=== PATIENT | female | born 1995 | race Hispanic/Latino ===

== ENCOUNTER 2020-01-21 16:31 | Outpatient (CLI) | payer OTHER, SELFPAY ==
--- NOTE | ~2020-01-21 | XR_ITS ---
XR foot LT min 3V 01/21/2020 16:50 INDICATION: Left foot pain PROCEDURE: 4 views left foot COMPARISON: No prior studies for comparison. FINDINGS: Fracture, dislocation or subluxation is not identified. Lisfranc joint intact. The soft tis sues appear within normal limits. No foreign bodies are identified. There is mild hallux valgus. IMPRESSION: 1: NO ACUTE BONE OR JOINT ABNORMALITY IDENTIFIED. Reviewed, dictated and finalized at location A.
== END 2020-01-21 16:32 | disposition home or self-care (01) ==
PROVIDERS: PCP Registered Nurse; Visit Provider Registered Nurse
DX: M20.12 Hallux valgus (acquired), left foot (principal)
CPT/HCPCS: 73630

== ENCOUNTER 2023-04-28 08:13 | Emergency (ER) | payer BC, SELFPAY ==
--- NOTE | 2023-04-28 08:24 | ED.URI ---
HPI - URI/Sore Throat General Chief Complaint: Upper Respiratory Infection Stated Complaint: Soar Throat Source: patient and RN notes reviewed History of Present Illness HPI Narrative: 27-year-old female presents to urgent care with complaints of a sore throat since night. Patient reports some right ear discomfort as well as body aches. Reports some congestion. Patient denies any known fevers but feels hot and cold at times. Denies any chest pain, shortness of breath, vomiting, or diarrhea. Patient has been taking ibuprofen at home. Some parts of this dictation were generated by voice recognition software and may contain typographical and/or grammatical inaccuracies. Related Data Allergies Allergy/AdvReac Type Severity Reaction Status Date / Time No Known Allergies Allergy Verified 04/28/23 08:34 Review of Systems Review of Systems: Pertinent positives and pertinent negatives per HPI. PMFSH Comments At the time of my signature, I reviewed and agree with the nursing past medical, surgical, social, and family history. There is no relevant family history pertinent to the patient complaint. Exam Narrative: GENERAL: This is a well-nourished, well-developed patient, in no apparent distress. HEAD: normocephalic, atraumatic. EYES: Sclera clear/white. Vision is grossly intact. EARS: External ears normal, auditory canals clear and without drainage, TMs normal without perforation. Hearing grossly intact. NOSE: External nose normal with no obvious nasal discharge, nares without redness, no rhinorrhea. THROAT: Mucous membranes moist, posterior pharynx erythremic. Tonsils bilaterally 3+ with exudate. NECK: Neck supple, non-tender without lymphadenopathy, masses or thyromegaly. CARDIOVASCULAR: Regular rate and rhythm without murmurs, gallops, or rubs. RESPIRATORY: Clear to auscultation. Breath sounds equal bilaterally. No wheezes, rales, or rhonchi. SKIN: warm, intact with no suspicious lesions or rash, good texture and turgor. NEURO: awake, alert, and oriented to person, place and time. There were no obvious focal neurologic abnormalities. Course Course Level of Care: Express Care Visit Vital Signs Vital signs: Vital Signs Temperature 99.8 F H 04/28/23 08:28 Pulse Rate 94 04/28/23 08:28 Respiratory Rate 16 04/28/23 08:28 Blood Pressure 134/78 04/28/23 08:28 Pulse Oximetry 99 04/28/23 08:28 Oxygen Delivery Room Air 04/28/23 08:28 Temperature 99.8 F H 04/28/23 08:28 Pulse Rate 94 04/28/23 08:28 Respiratory Rate 16 04/28/23 08:28 Blood Pressure 134/78 04/28/23 08:28 Pulse Oximetry 99 04/28/23 08:28 Oxygen Delivery Room Air 04/28/23 08:28 reviewed MDM - URI/Sore Throat Differential Diagnosis Differential diagnosis: Likely upper respiratory infection, viral infection and pharyngitis Lab Data Attestation: I reviewed the patient's lab results. Labs: Strep Screen Presumptive Negative *(Reference Range: Negative)* Critical Care Time Critical Care Time Critical Care Time: No Discharge Plan Discharge Clinical Impression: Pharyngitis Qualifiers: Pharyngitis/tonsillitis etiology: unspecified etiology Qualified Code(s): J02.9 - Acute pharyngitis, unspecified Patient Disposition: Home, Self-Care Condition: Stable Instructions: Pharyngitis (ED) Additional Instructions: Rapid strep is negative in the office; however we will send to the lab for confirmation; there is a small percentage chance that it can come back positive; if it is, we will call you in 2-3days; and your prescription will be call in to your pharmacy. However, there is NO indication for antibiotic at this time. -Increase your fluids and Vitamin C. -Oral rinses such as: Salt water gargles and/or may use topical anesthetic (eg. Chloraseptic spray) or lozenges to relieve dryness or throat pain. -Take tylenol and ibuprof
[2023-04-28 08:28] VITALS: BP 134/78; PULSE 94; RESP 16; TEMP 37.7; O2SAT 99
== END 2023-04-28 08:48 | disposition home or self-care (01) ==
PROVIDERS: Emergency Provider Nurse Practitioner Family; PCP Registered Nurse
DX: J02.9 Acute pharyngitis, unspecified (principal)
CPT/HCPCS: 87081; 87880; 99213; G0463

== ENCOUNTER 2025-01-05 09:27 | Emergency (ER) | payer BC, OTHER, SELFPAY ==
--- NOTE | ~2025-01-05 | CT_ITS ---
CT of the Abdomen and Pelvis: Indication: Abdominal pain Technique: 2.5 mm axial scans were obtained through the abdomen and pelvis following intravenous adm inistration of 100 cc of Omnipaque 350. Dose reduction technique was used on this scan by utilizing a utomated exposure control and iterative reconstruction technique. The dose-length product (DLP) was 8 96.67 mGy-cm. Findings: Scans through the lung bases are unremarkable. The liver, spleen, pancreas, gallbladder, adrenals and kidneys are within normal limits. No evidence of aortic aneurysm. No lymphadenopathy. No bowel obstruction or bowel wall thickening. There is no evidence to suggest acute appendicitis. Images through the pelvis were performed. Urinary bladder unremarkable. No adnexal mass seen. Probabl e trace free fluid in the pelvis. Impression: Trace free fluid in the pelvis, otherwise unremarkable exam. Reviewed, dictated and finalized at location . ICAL OPERATIONS CONSULTANT Impression: Trace free fluid in the pelvis, otherwise unremarkable exam.
[2025-01-05 09:33] VITALS: BP 131/74; PULSE 83; RESP 18; TEMP 36.6; O2SAT 100
--- OUTSIDE RECORDS SUMMARY | 2025-01-05 10:06 | XMS_ITS | Clinical Summary ---
Author Organization [address] [address] Care Team Providers Care Fruit Grower Name Role Phone MeronAlma JENNIFFER Primary Care Provider [phone] Allergies No known active allergies Medications No known medications Active Problems No known active problems Encounters Date Type Department Care Team Description 01/05/2025 9:15 AM BATTERY LOADER Office Visit [facility] at [address] [address] Gabriela Anderson NP Abdominal pain (Primary Dx); Abdominal tenderness, rebound tenderness presence not specified, unspecified location from Last 3 Months Social History Tobacco Use Types Packs/Day Years Used Date Smoking Tobacco: Never Assessed Comments Unknown Sex and Gender Information Value Date Recorded Sex Assigned at Not on file Legal Sex Female 8:37 AM BATTERY LOADER Gender Identity Not on file Sexual Orientation Not on file Obstetrics History Last Filed Vital Signs Vital Sign Reading Time Taken Comments Blood Pressure 119/80 01/05/2025 9:01 AM BATTERY LOADER Pulse 75 01/05/2025 9:01 AM BATTERY LOADER Temperature 36.8 C (98.2 F) 01/05/2025 9:01 AM BATTERY LOADER Respiratory Rate 18 01/05/2025 9:01 AM BATTERY LOADER Oxygen Saturation 99% 01/05/2025 9:01 AM BATTERY LOADER Inhaled Oxygen Concentration - - Weight 99.2 kg (218 lb 9.6 oz) 01/05/2025 9:01 A M BATTERY LOADER Height 160 cm (5' 3 ) 01/05/2025 9:01 AM BATTERY LOADER Body Mass Index 38.72 01/05/2025 9:01 AM BATTERY LOADER Plan of Treatment Health Maintenance Due Date Last Done Comments Cervical Cancer Screening 1996 Depression Screening 1996 Hepatitis C Screening 1996 Varicella Vaccines (2 of 2 - 2-dose childhood series) 01/04/2007 10/12/2006 Regular Well Visit/Exam 18-64 2014 Covid-19 Vaccine (2 - 2023- season) 2024 11/11/2021 Influenza Vaccine (#1) 2024 08/26/2008 DTaP/Tdap/Td Vaccine (8 - Td or Tdap) 05/07/2030 05/07/2020, 2007, 08/27/2000, Additional history exists HPV Vaccines Completed 09/17/2014, 01/11, 09/28/2010, Additional history exists Hepatitis B Screening Completed 12/29/2024 , 07/28/2024, 06/27/2024, Additional history exists Pneumococcal vaccine <65 Aged Out No longer eligible based on patient's age to complete this topic Insurance [facility] [place] Care Teams Fruit Grower Relationship Specialty Start Date End Date Alma Chance NP [facility] [address] PCP - General Nurse Practitioner 01/05/25
--- OUTSIDE RECORDS SUMMARY | 2025-01-05 10:06 | XMS_ITS | Encounter Summary ---
Author Organization [facility] Healthcare Address [address] [place] [id number] Care Team Providers Care Assistant Distribution Manager Name Role Phone Alma Chance NP Primary Care Provider [phone] Reason for Visit * Reason Comments Abdominal Pain Upper abdominal pain , in the center under her rib cage, started last night, hurts to be flat on her back, and stand up straight, 6/10 pain, feels like a Dull pain, Encounter Details Date Type Department Care Team (Late st Contact Info) Description 01/05/2025 9:15 AM ADULT DAY CARE WORKER Office Visit [facility] at [address] [address] Gabriela Anderson NP [address] [place] [address] [address] [place] [address] Abdominal pain (Primary Dx); Abdominal tenderness, rebound tenderness presence not specified, unspecified location Social History Tobacco Use Types Packs/Day Years Used Date Smoking Tobacco: Never Assessed Comments Unknown Sex and Gender Information Value Date Recorded Sex Assigned at Not on file Legal Sex Female 8:37 AM ADULT DAY CARE WORKER Gender Identity Not on file Sexual Orientation Not on file documented as of this encounter Last Filed Vital Signs Vital Sign Reading Time Taken Comments Blood Pressure 119/80 01/05/2025 9:01 AM ADULT DAY CARE WORKER Pulse 75 01/05/2025 9:01 AM ADULT DAY CARE WORKER Temperature 36.8 C (98.2 F) 01/05/2025 9:01 AM ADULT DAY CARE WORKER Respiratory Rate 18 01/05/2025 9:01 AM ADULT DAY CARE WORKER Oxygen Saturation 99% 01/05/2025 9:01 AM ADULT DAY CARE WORKER Inhaled Oxygen Concentration - - Weight 99.2 kg (218 lb 9.6 oz) 01/05/2025 9:01 A M ADULT DAY CARE WORKER Height 160 cm (5' 3 ) 01/05/2025 9:01 AM ADULT DAY CARE WORKER Body Mass Index 38.72 01/05/2025 9:01 AM ADULT DAY CARE WORKER documented in this encounter Plan of Treatment Not on file documented as of this encounter Visit Diagnoses Diagnosis Abdominal pain- Primary Abdominal pain, unspecified site Abdominal tenderness, rebound tenderness presence not specified, unspecified location documented in this encounter Care Teams Assistant Distribution Manager Relationship Specialty Start Date End Date Alma Chance NP [facility] [address] PCP - General Nurse Practitioner 01/05/25 documented as of this encounter
--- OUTSIDE RECORDS SUMMARY | 2025-01-05 10:06 | XMS_ITS | Data Portability ---
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 Plan of Treatment Reminders Order Date Submit Date Provider Last Modified By Organization Details Last Modified Time Details Appointments None recorded. Lab RPR (rapid plasma reagin), serum [address] [facility], [address] [place] [address], [place] [address], [place], [address], 0 06:10:00 HIV (1+2) antibodies , EIA, serum, reflex HIV-1 western blot (WB) 2019 020 bernie [facility], [address] [place] [address], [address], [place], [address], 0 10:14:19 pap, IG + HPV, cervical [address] 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 granite 1230 2019 020 [facility] (Lab), [address] [place], [address], 0 12:17:36 test, urine 2019 020 OS[facility] In-Office Order, Internal Use Only DO Not Attach Compendium DO Not Attach Compendium, Do Not Delete/merge, [id number] 14:54:28 PPD (purified protein derivative ), skin test 2018 019 [email or web address] In-Office Order, Internal Use Only DO Not Attach Compendium DO Not Attach Compendium, Do Not Delete/merge, [id number] 9 11:50:06 CMP, serum or plasma 2016 017 OSITO [facility], [address] [place] [address], [address], [place], [address], 7 03:30:18 lipid panel, serum 2016 017 OSITO [facility], [address] [place] [address], [address], [place], [address], 7 03:30:13 TSH + free T4, serum 2016 017 [email or web address] [facility], [address] [place] [address], [address], [place], [address], 7 15:47:38 HbA1c (hemoglobi n A1c), blood 2016 017 OSITO [facility], [address] [place] [address], [address], [place], [address], 7 08:21:08 CBC 2016 017 [email or web address] [facility], [address] [place] [address], [address], [place], [address], 7 15:47:27 CT + NG + TV, DNA, urine/swab 2016 017 OSITO [facility], [address] [facility] [address], [address], [place], [address], 7 23:29:32 HIV (1+2) Ab screen, serum 2016 017 OSIT[facility], [address] [facility] [address], [address], [place], [address], 7 08:21:06 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 Surgeries None recorded. Imaging XR, foot, 3 or more view 2019 020 [facility] Not available 0 02:49:53 Medication Orders Metrogel Vaginal 0.75 % (37.5 mg/5 gram) 2019 020 INTERFACE [facility], [address] [place], [address], 0 15:13:47 naproxen 500 mg tablet [address] [facility], [address] [facility], [place], [address], 0 14:42:00 Tubersol 5 tub. unit/0.1 mL intraderma l injection solution [address] [facility], [address] [place], [address], 0 14:00:39 Tubersol 5 tub. unit/0.1 mL intraderma l injection solution 2016 017 [facility] 2 Not available 0 14:00:39 Patient TargetsNo targets recorded. Patient Instructions Encounter Date Encounter Id Patient Instructions Last Modified By Organization Details Last Modified Time 04/02/2017 [id number] When You Want to Lose Weight: Care Instructions Not available 04/02/2017 15:31:10 back pain: care instructions Not available 04/02/2017 15:31:10 learning about tuberculosis (TB) Not available 04/02/2017 15:31:10 HIV testing recommendation condoms prn contraceptive options new guidelines--pap with Hpv in 3-5 years--pelvic exam every year Mammogram starting at 40 Check B/P once yearly [email or web address] Not available 04/02/2017 15:19:54 06/02/2019 [id number] learning about tuberculosis (TB) [email or web address] Not available 06/02/2019 17:33:38 01/21/2020 [id number] juanetes: instrucciones de cuidado - [bunions: care instructions] [email or web address] Not available 01/21/2020 14:36:00 body mass index: care instructions [email or web address] Not available 01/21/2020 14:36:01 learning about healthy weight yarauz Not available 01/21/2020 14:36:00 you need to schedule for wwe yarauz Not available 01/21/2020 14:37:42 use night bunion splint weight loss stretching exercises ice to the area as needed no flip flops or high heel shoes wider shoes/orthotics vaccine Bexsero yarauz Not available 01/21/2020 14:40:58 04/28/2020 [id number] Reviewed the following recommendations: -Stay home and separate from others as much as possible. -Monitor your symptoms and seek medical attention for trouble breathing, persistent chest pain, confusion, or bluish lips or face. -Wear a mask if you must be around other people. -Wash your hands often for 20 seconds with soap and water and clean high-touch surfaces daily -You may discontinue home isolation if your symptoms are improving and it has been 10 days since symptoms started. 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 ux valgus AND bunion 24 y/o HF with L foot bunion for 3 years with progressive worsening pain Referring Physician: Alma Franco, Family Medicine, Encounter Date: 01/21/2020 Results Created Date Observation Date Name Description Value Unit Range Abnormal Flag Note LastModifiedBy Organization Detail LastModifiedTime 06/04/20 19 06/04/2019 PPD (aurora fied prote in deriv ative ), skin test Result Positi ve Not Available In-Office Order Internal Use Only DO Not Attach Compendium DO Not Attach Compendium, Do Not Delete/merge, [id number] 06/04/2019 18:55:46 04/02/20 17 04/02/2017 CBC WBC 7.5 K/uL 3.4-10 .8 Not Available [facility] (Lab) [address] [place], [address], 04/02/2017 19:47:16 04/02/20 17 04/02/2017 CBC red blood count 4.6 M/uL 4.2-5. 4 Not Available [facility] (Lab) [address] [place], [address], 04/02/2017 19:47:16 04/02/20 17 04/02/2017 CBC hemoglobin 12.6 g/dL 11.5-1 5.5 Not Available [facility] (Lab) [address] [place], [address], 04/02/2017 19:47:16 04/02/20 17 04/02/2017 CBC hematocrit 37.7 % 36.0-4 8.0 Not Available [facility] ([facility]) [address] [place], [address], 04/02/2017 19:47:16 04/02/20 17 04/02/2017 CBC MCV 81 fL 80-95 Not Available [facility] (Lab) [address] [place], [address], 04/02/2017 19:47:16 04/02/20 17 04/02/2017 CBC MCH 27 pg 27-32 Not Available [facility] ([facility]) [address] [place], [address], 04/02/2017 19:47:16 04/02/20 17 04/02/2017 CBC MCHC 33 g/dL 32-36 Not Available [facility] (Lab) [address] [place], [address], 04/02/2017 19:47:16 04/02/20 17 04/02/2017 CBC platelets 331 K/uL 155-37 9 Not Available [facility] (Lab) [address] [place], [address], 04/02/2017 19:47:16 04/02/20 17 04/02/2017 CBC RDW 13.9 % 11.5-1 4.5 Not Available [facility] (Lab) [address] [place], [address], 04/02/2017 19:47:16 04/02/20 17 04/02/2017 CBC MPV 10.2 fL 8.9-12 .7 Not Available [facility] (Lab) [address] [place], [address], 04/02/2017 19:47:16 04/02/20 17 04/02/2017 CBC neutrophils absolute 4.3 K/uL 1.4-7. 0 Not Available [facility] (Lab) [address] [place], [address], 04/02/2017 19:47:16 04/02/20 17 04/02/2017 CBC lymphs (absolute) 2.5 K/uL 0.7-3. 1 Not Available [facility] (Lab) [address] [place], [address], 04/02/2017 19:47:16 04/02/20 17 04/02/2017 CBC monocytes (absolute) 0.6 K/uL 0.1-0. 9 Not Available [facility] (Lab) [address] [place], [address], 04/02/2017 19:47:16 04/02/20 17 04/02/2017 CBC eos (absolute) 0.1 K/uL 0.0-0. 4 Not Available [facility] (Lab) [address] [place], [address], 04/02/2017 19:47:16 04/02/20 17 04/02/2017 CBC baso (absolute) 0.0 K/uL 0.1-0. 3 low Not Available [facility] (Lab) [address] [place], [address], 04/02/2017 19:47:16 04/02/20 17 04/02/2017 CBC neut % 57.4 % 40.0-7 4.0 Not Available [facility] (Lab) [address] [place], [address], 04/02/2017 19:47:16 04/02/20 17 04/02/2017 CBC lymphs % 33.4 % 14.0-4 6.0 Not Available [facility] (Lab) [address] [place], [address], 04/02/2017 19:47:16 04/02/20 17 04/02/2017 CBC mono % 7.5 % 4.0-12 .0 Not Available [facility] (Lab) [address] [place], [address], 04/02/2017 19:47:16 04/02/20 17 04/02/2017 CBC eos % 1 % <=5 Not Available [facility] (Lab) [address] [place], [address], 04/02/2017 19:47:16 04/02/20 17 04/02/2017 CBC baso % 0.4 % 0.1-1. 1 Not Available [facility] (Lab) [address] [place], [address], 04/02/2017 19:47:16 04/02/20 17 04/02/2017 lipid panel w/ direc t LDL, serum cholestrol 136.0 mg/dL 140.0- 200.0 low Not Available [facility] (Lab) [address] [place], [address], 04/02/2017 21:22:37 04/02/20 17 04/02/2017 lipid panel w/ direc t LDL, serum triglyceride s 127 mg/mL 150-19 9 low Not Available [facility] (Lab) [address] [place], [address], 04/02/2017 21:22:37 04/02/20 17 04/02/2017 lipid panel w/ direc t LDL, serum HDL cholesterol 52.0 mg/dL 40.0-1 00.0 Not Available [facility] (Lab) [address] [place], [address], 04/02/2017 21:22:37 04/02/20 17 04/02/2017 lipid panel w/ direc t LDL, serum LDL direct 71 mg/dL <=100 Not Available [facility] (Lab) [address] [place], [address], 04/02/2017 21:22:37 04/02/20 17 04/02/2017 lipid panel w/ direc t LDL, serum cholhdl 2.60 mg/dL 0.00-4 .98 Not Available [facility] (Lab) [address] [place], [address], 04/02/2017 21:22:37 04/02/20 17 04/02/2017 CMP, serum or plasm a glucose, serum 81 mg/dL 65-99 Not Available [facility] (Lab) [address] [place], [address], 04/02/2017 21:22:57 04/02/20 17 04/02/2017 CMP, serum or plasm a BUN 8 mg/dL 8-26 Not Available [facility] (Lab) [address] [place], [address], 04/02/2017 21:22:57 04/02/20 17 04/02/2017 CMP, serum or plasm a creatinine, serum 0.60 mg/dL 0.50-1 .40 Not Available [facility] (Lab) [address], [place], [address], 04/02/2017 21:22:57 04/02/20 17 04/02/2017 CMP, serum or plasm a BUN/creatnin e ratio 13.3 Not Available [facility] (Lab) [address], [place], [address], 04/02/2017 21:22:57 04/02/20 17 04/02/2017 CMP, serum or plasm a sodium, serum 142.0 mEq/L 136.0- 144.0 Not Available [facility] (Lab) [address] [place], [address], 04/02/2017 21:22:57 04/02/2004/02/2017 CMP, serum or plasm a potassium, serum 4.3 mmol/ L 3.5-5. 3 Not Available [facility] (Lab) [address], [place], [address], 04/02/2017 21:22:57 04/02/20 17 04/02/2017 CMP, serum or plasm a chloride, serum 101 mmol/ l 101-11 1 Not Available [facility] (Lab) [address], [place], [address], 04/02/2017 21:22:57 04/02/2004/02/2017 CMP, serum or plasm a carbon dioxide total 20.8 mmol/ L 21.0-3 2.0 low Not Available [facility] (Lab) [address], [place], [address], 04/02/2017 21:22:57 04/02/20 17 04/02/2017 CMP, serum or plasm a aniongp 25.0 mmol/ L Not Available [facility] (Lab) [address], [place], [address], 04/02/2017 21:22:57 04/02/20 17 04/02/2017 CMP, serum or plasm a calcium, serum 9.5 mg/dL 8.2-10 .0 Not Available [facility] (Lab) [address], [place], [address], 04/02/2017 21:22:57 04/02/20 17 04/02/2017 CMP, serum or plasm a total protein 7.5 g/dL 6.7-8. 2 Not Available [facility] (Lab) [address] [place], [address], 04/02/2017 21:22:57 04/02/2004/02/2017 CMP, serum or plasm a albumin, serum 4.2 g/dL 3.5-5. 5 Not Available [facility] (Lab) [address], [place], [address], 04/02/2017 21:22:57 04/02/2004/02/2017 CMP, serum or plasm a agratio 1.3 Not Available [facility] (Lab) [address], [place], [address], 04/02/2017 21:22:57 04/02/20 17 04/02/2017 CMP, serum or plasm a bilt 0.4 mg/dL 0.2-1. 0 Not Available [facility] (Lab) [address], [place], [address], 04/02/2017 21:22:57 04/02/20 17 04/02/2017 CMP, serum or plasm a AST 18.0 U/L 10.0-4 2.0 Not Available [facility] (Lab) [address], [place], [address], 04/02/2017 21:22:57 04/02/20 17 04/02/2017 CMP, serum or plasm a ALT 13.0 U/L 10.0-6 0.0 Not Available [facility] (Lab) [address] [place], [address], 04/02/2017 21:22:57 04/02/20 17 04/02/2017 CMP, serum or plasm a alk phos 48.0 IU/L 42.0-1 21.0 Not Available [facility] (Lab) [address] [place], [address], 04/02/2017 21:22:57 04/02/20 17 04/02/2017 CMP, serum or plasm a osmol 280.0 mOsm/ L 275.0- 301.0 Not Available [facility] (Lab) [address] [place], [address], 04/02/2017 21:22:57 04/02/20 17 04/02/2017 CMP, serum or plasm a eGFR, AM 164 m/lmi n/1.7 3_m >=60 Not Available [facility] (Lab) [address] [place], [address], 04/02/2017 21:22:57 04/02/20 17 04/02/2017 CMP, serum or plasm a eGFR, non- AM 136 mL/mi n/1.7 3/m >=60 Not Available [facility] (Lab) [address] [place], [address], 04/02/2017 21:22:57 04/02/20 17 04/03/2017 TSH + free T4, serum TSH 1.110 uIU/m L 0.450- 4.500 Not Available [facility] (Lab) [address] [place], [address], 04/03/2017 07:12:26 04/02/2004/03/2017 TSH + free T4, serum T4,free(dire ct) 1.07 NG/dL 0.82-1 .77 Not Available [facility] (Lab) [address] [place], [address], 04/03/2017 07:12:26 04/02/2004/03/2017 HIV (1+2) Ab scree n, serum HIV 4TH generation Non Reacti ve non reacti ve Not Available [facility] (Lab) [address] [place], [address], 04/03/2017 08:21:06 04/02/20 17 04/03/2017 HbA1c (hemo globi n A1c), blood hemoglobin A1C 5.7 % 4.8-5. 6 high . Pre-d iabet es: 5.7 - 6.4 Diabe russell: >6.4 Glyce ene contr ol for adult s with diabe russell: <7.0 Not Available [facility] (Lab) [address] [place], [address], 04/03/2017 08:21:08 04/02/20 17 04/03/2017 CT + NG + TV, DNA, urine /swab chlamydia by DARRIN Negati ve negati ve Not Available [facility] (Lab) [address] [place], [address], 04/03/2017 23:29:32 04/02/20 17 04/03/2017 CT + NG + TV, DNA, urine /swab gonococcus by DARRIN Negati ve negati ve Not Available [facility] (Lab) [address] [facility], [place], [address], 04/03/2017 23:29:32 04/02/20 17 04/03/2017 CT + NG + TV, DNA, urine /swab trich vag by DARRIN Negati ve negati ve Not Available [facility] (Lab) [address] [place], [address], 04/03/2017 23:29:32 06/16/20 19 06/17/2019 tb (M tuber culos is), ifn-g elmo betty , blood quantiferon incubation Incuba tion perfor med. Not Available [facility] ([facility]) [address] [facility], [place], [address], 06/19/2019 16:10:20 06/16/2006/17/2019 tb (M tuber culos is), ifn-g elmo betty , blood quantiferon criteria Commen t The Quant iFERO N-TB Gold Plus resul t is deter mined by alber actin g the Nil value from eithe r TB antig en (Ag) tube. The mitog en tube serve s as a contr ol for the test. Not Available [facility] ([facility]) [address] [place], [address], 06/19/2019 16:10:20 06/16/2006/19/2019 tb (M tuber culos is), ifn-g elmo betty , blood quantiferon TB1 Ag value 0.13 IU/mL Not Available [facility] ([facility]) [address] [place], [address], 06/19/2019 16:10:20 06/16/2006/19/2019 tb (M tuber culos is), ifn-g elmo betty , blood quantiferon TB2 Ag value 0.14 IU/mL Not Available [facility] ([facility]) [address] [place], [address], 06/19/2019 16:10:20 06/16/2006/19/2019 tb (M tuber culos is), ifn-g elmo betty , blood quantiferon nil value 0.02 IU/mL Not Available [facility] ([facility]) [address] [place], [address], 06/19/2019 16:10:20 06/16/2006/19/2019 tb (M tuber culos is), ifn-g elmo betty , blood quantiferon mitogen value >10.00 IU/mL Not Available [facility] ([facility]) [address] [place], [address], 06/19/2019 16:10:20 06/16/2006/19/2019 tb (M tuber culos is), ifn-g elmo betty , blood quantiferon- TB gold plus Negati ve negati ve Not Available [facility] ([facility]) [address] [facility], [place], [address], 06/19/2019 16:10:20 01/21/20 20 01/21/2020 pregn filomena test, urine HCG negati ve Not Available In-Office Order Internal Use Only DO Not Attach Compendium DO Not Attach Compendium, Do Not Delete/merge, [id number] 01/21/2020 14:38:32 04/28/20 20 04/28/2020 SARS CoV 2 RNA (COVI D-19) , QL, human resources 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 A negat han resul t does not precl ude the possi bilit y of 2019- nCoV infec tion since the adequ acy of sampl e colle ction and/o r low viral burde n may resul t in the prese nce of viral nucle ic acids level s below the saima tical sensi tivit y of this test metho d. Not Available [facility] (Lab) [address] [facility], [place], [address], 05/11/2020 11:18:14 04/28/20 20 04/28/2020 SARS CoV 2 RNA (COVI D-19) , QL, human resources compensation analyst-P CR, respi rator y speci men covidcom2 Posit han resul ts are indic ative of the prese nce of SARS- CoV-2 RNA and do not rule out bacte rial infec tion or co-in fecti on with other virus es. Not Available [facility] (Lab) [address] [place], [address], 05/11/2020 11:18:14 04/28/20 20 04/28/2020 SARS CoV 2 RNA (COVI D-19) , QL, human resources compensation analyst-P CR, respi rator y speci men covidcom3 Test resul ts shoul d be used along with other clini judy obser vatio ns, patie nt histo ry, epide miolo gical infor matio n and labor atory data in makin g the diagn osis. Not Available [facility] (Lab) [address] [place], [address], 05/11/2020 11:18:14 04/28/20 20 04/28/2020 SARS CoV 2 RNA (COVI D-19) , QL, human resources compensation analyst-P CR, respi rator y speci men covidcom4 This test has recei dulce FDA Emerg ency Use Autho rizat ion and has been verif ied by [facility] . This test is only autho rized for the durat ion of the decla ratio n and the circu mstan sana that exist to justi fy the autho rizat ion of the emerg ency use of in vitro diagn ostic tests for the detec tion of SARS- CoV-2 virus and/o r diagn osis of COVID -19 infec tion under secti on 564 (b) (1) of the Act. 11 U.S.C . 360bb b-3 (b) (1), unles s the autho rizat ion is termi nated or revok ed soone r. Not Available [facility] (Lab) [address] [place], [address], 05/11/2020 11:18:14 04/28/20 20 04/28/2020 SARS CoV 2 RNA (COVI D-19) , QL, human resources compensation analyst-P CR, respi rator y speci men covidcom5 [facility] is certi fied under CLIA- 88 as quali fied to perfo rm high compl exity testi ng. This testi ng was perfo rmed in the [facility] [place] [address] (CLIA Licen se #[id number] 5, CAP #[id number], AU-ID #[id number]). Not Available [facility] (Lab) [address] [place], [address], 05/11/2020 11:18:14 04/28/20 20 04/28/2020 SARS CoV 2 RNA (COVI D-19) , QL, human resources compensation analyst-P CR, respi rator y speci men covidcom6 Facts heet for healt hcare provi ders: https ://[employer].Help/Systems .gov/ media /4992 56/do wnloa d Facts heet for patie nts: https ://[employer].Help/Systems .gov/ media /9680 57/do wnloa d Not Available [facility] (Lab) [address] [place], [address], 05/11/2020 11:18:14 05/07/20 20 05/08/2020 RPR (rapi d plasm a reagi n), serum RPR Non Reacti ve non reacti ve Not Available [facility] (Lab) [address] [place], [address], 05/08/2020 06:10:00 05/07/20 20 05/08/2020 HIV (1+2) antib odies , EIA, serum , refle x HIV-1 weste rn blot (WB) HIV 4TH generation Non Reacti ve non reacti ve Not Available [facility] (Lab) [address] [place], [address], 05/08/2020 08:13:10 05/07/20 20 05/11/2020 CT + NG RNA, PCR, unspe cifie d speci men chlamydia trachomatis, DARRIN Negati ve negati ve Not Available [facility] [address] [place] [address], [place], [address], 05/11/2020 08:14:26 05/07/20 20 05/11/2020 CT + NG RNA, PCR, unspe cifie d speci men neisseria gonorrhoeae, DARRIN Negati ve negati ve Not Available [facility] [address], [place], [address], 05/11/2020 08:14:26 05/07/20 20 05/12/2020 pap, IG + HPV, cervi judy diagnosis: [facility] NEGAT HAN FOR INTRA EPITH ELIAL LESIO N OR MOOK NASH . Perfo rmed at: WB Not Available [facility] [address], [place], [address], 05/12/2020 18:30:19 05/07/20 20 05/12/2020 pap, IG + HPV, cervi judy specimen adequacy: [facility] Satis facto ry for evalu ation . Endoc ervic al and/o r squam ous metap lasti c cells (endo cervi judy compo nent) are prese nt. Perfo rmed at: WB Not Available [facility] [address], [place], [address], 05/12/2020 18:30:19 05/07/20 20 05/12/2020 pap, IG + HPV, cervi judy performed by: [facility] Alejandra krishnamurthy, Cytot echno logis t (ASCP ) Perfo rmed at: WB Not Available [facility] [address], [place], [address], 05/12/2020 18:30:19 05/07/20 20 05/12/2020 pap, IG + HPV, cervi judy Pap smear, 1 slide . Perfo rmed at: WB Not Available [facility] [address], [place], [address], 05/12/2020 18:30:19 05/07/20 20 05/12/2020 pap, IG + HPV, cervi judy note: PAPSMR The Pap smear is a scree lori test desig sonia to aid in the detec tion of linda ligna nt and malig nant condi tions of the uteri ne cervi x. It is not a diagn ostic proce dure and shoul d not be used as the sole means of detec ting cervi judy cance r. Both false -posi tive and false -nega tive repor ts do occur . . Perfo rmed at: WB Not Available [facility] [address] [facility] [address], [place], [address], 05/12/2020 18:30:19 05/07/20 20 05/12/2020 pap, IG + HPV, cervi judy test methodology: IGLPAP This liqui d based ThinP rep(R ) pap test was scree sonia with the use of an image guide carissa ovalle Perfo rmed at: WB Not Available [facility] [address] [place] [address] [address], [place], [address], 05/12/2020 18:30:19 05/07/20 20 05/12/2020 pap, IG + HPV, cervi judy HPV aptima Negati ve negati ve This nucle ic acid ampli ficat ion test detec ts fourt een high- risk HPV types (16,1 8,31, 33,35 ,39,4 5,51, 52,56 ,58,5 9,66, 68) witho ut diffe renti ation . Perfo rmed at: =G Not Available [facility] [address] [place] [address] [address], [place], [address], 05/12/2020 18:30:19 06/05/20 19 xr chest Pa+la t [facility] [address] [facility] [place] [address] Patien t name: CINDY GARCIA DO Examin ation: Chest x-ray 2 view Exam time: 019 10:41 AM Clinic al histor y: 23 years Female . Positi ve tuberc ulosis test Compar marilin: None. Techni que: Fronta l and latera l views of the chest were obtain ed. Findin gs: No parenc hymal consol idatio n. No pneumo thorax or pleura l effusi on. Normal heart size. Medias tinum is unrema rkable . Verteb ral body height s are normal . IMPRES RON: No radiog raphic eviden ce of active tuberc ulosis . Electr onical ly Signed By: Nya Cristobal MD, MD on 019 12:24 PM [facility] [address] [facility], [place], [address], 06/06/2019 13:02:32 06/05/20 19 06/05/2019 XR, chest , 2 view No observ ation record ed. [email or web address] [facility] [address] [facility], [place], [address], 06/12/2019 14:46:47 06/13/20 19 06/05/2019 imagi ng/[place] resul t No observ ation record ed. Not Available 2018 12:01:51 01/21/20 20 01/21/2020 XR, foot, 3 or more view No observ ation record ed. [facility] [address], [place], [address], 01/22/2020 16:12:55 Result Notes None recorded. Problems Name Problem SNOMED Code Status Onset Date Resolution Date Notes Provider Name and Address Organization Details Recorded Time Body mass index 30+ - obesity 799632016 Active 2019 NICOLÁS Decker- Attn: Reagan gambino,[address] [facility], [place], [address] , [facility] 3 15:21:29 Acute sinusitis 02859643 Completed 04/02/2017 Emma Delarosa RN [facility], [facility] 7 14:43:24 Problem Notes None recorded. Procedures Surgical History Date Name Laterality Status Provider Name and Address Organization Details Recorded Time 05/07/2020 Date of Last Pap Smear completed NICOLÁS Decker- Attn: Accounting,[address], [place], [address], [facility] 05/07/2020 14:57:22 Imaging Results Imaging Date Name Status LastModified by Organiz ation Details LastModified Time 06/05/2019 xr chest Pa+lat completed [address] [facility], [place], [address], 06/06/2019 13:02:32 06/05/2019 XR, chest, 2 view completed [email or web address] [facility] [address] [facility], [place], [address], 06/12/2019 14:46:47 06/05/2019 imaging/diag nostic result completed Information not available 06/18/2019 12:01:51 01/21/2020 XR, foot, 3 or more view completed [facility] [address] [facility] [address], [place], [address], 01/22/2020 16:12:55 Procedure Notes None recorded. Medical Equipment None Reported. Allergies Allergen ID Allergen Name Allergen Category Reaction Reaction Severity Criticality Documentation Date Start Date Code Code System Note Provider Name and Address Organization Details Recorded Time 196805 purified protein derivativ e of tuberculi n Not available rash moderate Not available 01/21/20202018 8948 RxNorm Not Available Not Available Not Available Medications Name Sig Start Date Stop Date Status Note LastModified by Organization Details LastModified Time Medrol (Ramón) 4 mg tablets in a dose pack Take by oral route as directed on package 04/02 completed Not Available Not Available Not Available Tubersol 5 tub. unit/0.1 mL intraderm al injection solution Administ er .1ml interder amando 01/20 completed NADINE Marte Not Available Not Available Not Available amoxicill in 875 mg tablet Take 1 tablet every 12 hours by oral route for 10 days. 04/02 completed Not Available Not Available Not Available Metrogel Vaginal 0.75 % (37.5 mg/5 gram) Insert 1 applicat orful every day by vaginal route. 2019 active Not Available Not Available Not Avai lable fluticaso ne propionat e 50 mcg/actua tion nasal spray,segundo pension Inhale 1 spray twice a day by intranas al route. 04/02 completed Not Available Not Available Not Available naproxen 500 mg tablet Take 1 tablet twice a day by oral route. 05/07 completed Not Available Not Available Not Available Mucus Relief Cough 20 mg-400 mg tablet Take by oral route. 04/02 completed over the counter Not Available Not Available Not Available Nexplanon 68 mg subdermal implant Inject by subcutan eous route. 2016 active Not Available Not Available Not Avai lable Vitals Date Recorded Body temperature Body height Body mass index (BMI) Body weight Heart rate Oxygen saturation Oxygen saturation in Arterial blood by Pulse oximetry Systolic blood pressure Diastolic blood pressure Provider Name and Address Organization Details Last Updated DateTime 9 98.3 [degF] 165.1 cm 34.2 kg/m2 98392.2 4 g 64 /min 98 % 98 % 110 mm[Hg] 60 mm[Hg] Deedee Beatriz [facility] 9 17:51:35 Date Recorded Body height Body mass index (BMI) Body weight Body temperature Heart rate Systolic blood pressure Diastolic blood pressure Provider Name and Address Organization Details Last Updated DateTime 0 165.1 cm 33.5 kg/m2 73061.8 7 g 98.4 [degF] 70 /min 102 mm[Hg] 60 mm[Hg] Edward Almazan [facility] 0 14:14:13 Date Recorded Body height Provider Name an d Address Organization Details Last Updated DateTime 02/23/2020 165.1 cm NADINE [place] - [facility] 02/23/20 20 10:34:06 Date Recorded Body height Body mass index (BMI) Body weight Heart rate Body temperature Systolic blood pressure Diastolic blood pressure Provider Name and Address Organization Details Last Updated DateTime 0 165.1 cm 34.3 kg/m2 62582.0 3 g 74 /min 98.8 [degF] 110 mm[Hg] 60 mm[Hg] Edward Tha [facility] 0 14:45:03 Date Recorded Body weight Body height Body mass index (BMI) Body temperature Respiratory rate Heart rate Systolic blood pressure Diastolic blood pressure Provider Name and Address Organization Details Last Updated DateTime 7 19658.3 9 g 165.1 cm 30.9 kg/m2 98 [degF] 16 /min 72 /min 108 mm[Hg] 66 mm[Hg] Emma Delarosa RN [facility] 7 14:52:42 Social History Question Answer Notes LastModified by Organizat ion Details LastModified Time Tobacco Smoking Status Never Smoker Tete grant, [facility] 11/10/2015 15:16:44 What Is Your Level Of Alcohol Consumption? None Information not available 11/10/2015 What Is Your Level Of Caffeine Consumption? Occasional Information not available 04/02/2017 How Much Tobacco Do You Chew? None Information not available 11/10/2015 What Type Of Diet Are You Following? REGULAR Information not available 11/10/2015 Which Illicit Or Recreational Drugs Have You Used? 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 No Information not available 11/10/2015 Hard Of Hearing Or Deaf In One Or Both Ears? No Information not available 11/10/2015 Legally Blind In One Or Both Eyes? No Information no t available 11/10/2015 Marital Status Single Informatio n not available 04/02/2017 What Was The Date Of Your Most Recent Tobacco Screening? 05/07/2020 [email or web address] Information not available 05/07/2020 Performs Monthly Self-breast Exam? Yes Information no t available 04/02/2017 Seat Belts Used Routinely Yes Information not available 11/10/2015 Smoke Alarm In Home Yes Information not available 11/10/2015 How Much Tobacco Do You Smoke? No Information not available 11/10/2015 General Stress Level Low Information not available 11/10/2015 Do You Use Sunscreen Routinely? No Information not available 11/10/2015 Sex: Unknown Functional Status Question Answer Note LastModified by Organization D etails LastModified Time What is your exercise level? None Information not available 11/10/2015 Mental Status None recorded. Family History Relationship Description Onset Age of this Age Resolved Age Notes LastModified by Organization Details LastModified Time Mother Alive Not availab le 11/10/2015 15:16:44 Paternal Grandmother Diabetes mellitus [email or web address] Not available 2016 15:23:48 Maternal Grandmother Kidney disease 65 65 [email or web address] Not available 2016 15:23:38 Paternal Grandfather Diabetes mellitus [email or web address] Not available 2016 15:23:55 Medical History No medical history recorded. Gynecological History Statement/Question Response Flow Moderate Date of LMP 04/09/2020 Frequency of Cycle (Q days) 28 Date of Last Pap Smear 05/07/2020 Duration of Flow (days) 5 Age at Menarche 12 Current Control Method Implant LMP Definite Obstetrics History GPAL:G 0 P 0 0 0 0 Immunizations Vaccine Type Date Status Note Provider Nam e and Address Organization Details Recorded Time DTaP 0 completed Emma Del[place], [place] [facility] 11/10/2015 15:03:31 DTaP 7 completed [place] [facility] 11/10/2015 15:03:31 DTaP 8 completed [place] [facility] 11/10/2015 15:03:31 DTaP 6 completed [place] [facility] 11/10/2015 15:03:31 DTaP 7 completed [place] [facility] 11/10/2015 15:03:31 Tdap 7 completed [place] [facility] 11/10/2015 15:03:31 IPV 0 completed [place] [facility] 11/10/2015 15:04:42 IPV 7 completed [place] [facility] 11/10/2015 15:04:42 IPV 8 completed [place] [facility] 11/10/2015 15:04:42 IPV 6 completed [place] [facility] 11/10/2015 15:04:42 IPV 7 completed [place] [facility] 11/10/2015 15:04:42 MMR 2 completed [place] [facility] 11/10/2015 15:07:03 Hep B, adolescent or pediatric 6 completed [place] [facility] 11/10/2015 15:07:03 MMR 6 completed [place] [facility] 11/10/2015 15:07:03 Hep B, adolescent or pediatric 6 completed [place] [facility] 11/10/2015 15:07:03 Hep B, adolescent or pediatric 7 completed [place] [facility] 11/10/2015 15:07:03 MMR 7 completed [place] [facility] 11/10/2015 15:07:03 HPV, quadrivalent 0 completed [place] [facility] 11/10/2015 15:09:24 meningococcal MCV4, unspecified formulation 4 completed [place] [facility] 11/10/2015 15:09:24 Hep A, ped/adol, 2 dose 6 completed [place] [facility] 11/10/2015 15:09:24 meningococcal MCV4, unspecified formulation 7 completed [place] Del[place] [facility] 11/10/2015 15:09:24 HPV, quadrivalent 4 completed [place] Del[place] [facility] 11/10/2015 15:09:24 Hep A, ped/adol, 2 dose 7 completed [place] [facility] 11/10/2015 15:09:24 HPV, quadrivalent 0 completed [place] [facility] 11/10/2015 15:09:24 TST-PPD intradermal 8 completed [place] [facility] 11/10/2015 15:14:35 varicella 6 completed [place] [facility] 11/10/2015 15:19:04 meningococcal B, OMV 0 completed Edward grant[place] [facility] 01/21/2020 15:11:38 Tdap 0 completed [place] Del[place] [facility] 05/07/2020 15:29:18 TST-PPD intradermal 7 completed [place] Del[place] [facility] 07/10/2017 15:48:18 Past Encounters Encounter ID Performer Location Encounter Start Date Encounter Closed Date Diagnosis/Indication Diagnosis SNOMED-CT Code Diagnosis ICD10 Code Diagnosis Note [id number] Alma Franco [facility] [address] [place] [address] 11/10/2015 14:56:46 11/11/2015 17:31:35 Acute sinusitis 00443989 J01.[id number] [facility] [address] [place] [address] 04/02/2017 14:32:55 04/04/2017 17:03:38 Adult health examination 338345623 Z00.00 Obesity 234686959 E66.9 Tuberculos is screening 472642161 Z11.1 Venereal d isease screening 400216063 Z11.3 Backache 599707791 M54.9 stretching exercises weight loss Range of motion ice/heart as necessary no improvemen t in 2 weeks seek reeval [id number] Deedee Henderson [facility] [address] [place] [address] 06/02/2019 16:47:19 06/03/2019 10:40:04 Tuberculosis screening 832694155 Z11.1 ppd per ma per vo. pt to return on 06/04 for ppd reading. [id number] Alma Franco [facility] [address], [place] [address] 01/21/2020 13:55:58 01/22/2020 08:15:57 Body mass index 30+ - obesity 240721770 Z68.33 BMI 33.5Ht 5'5 Healthy weight range 115-150 Hallux stephanie osvaldo AND bunion 862440506 M20.12 MS FROM L great toe joint edematous protruding laterally (bunion) over medial first metatarsop halangeal joint with Hallux valgus of left foot Active or passive immunization 690560804 Z23 Has nexplanon on L arm since 10/25/2017 [id number] JENNIFFER Kirby [address] [place] [address] 04/28/2020 11:21:23 04/29/2020 10:55:47 Viral screening 968422498 Z11.59 D/w pt the current pandemic of COVID-19 and call for social isolation in order to blunt the curve and minimize risk and spread. Encouraged patient and family to take restrictio ns seriously. They have verbalized understand ing of such. Viral syndrome 458589398 B34.9 [id number] Alma Franco [facility] [address] [place] [address] 05/07/2020 14:33:41 05/10/2020 06:37:28 Gynecologic examination 44100145 Z01.411 Self breast exam calcium rich foods handout vitamin D 2000 iu daily exercise weight loss diet Vaginal discharge 946820 006 N89.8 Body mass index 30+ - obesity 666968884 Z68.33 BMI 33.5Ht 5'5 Healthy weight range 115-150 Administra tion of diphtheria, pertussis, and tetanus vaccine 790079928 Z23 Health Concerns Section Related Observation LastModified by Organization Detai ls LastModified Time None Recorded Concern Status LastModified by Organization Details LastModified Time None Recorded Advance Directives Directive None Recorded Payers Encounter Date Sequence Insurance Name Policy Number Policy Lawrence Covered Member ID Lawrence Member ID Guarantor Name 04/02/2017 1 [facility] PRIOR TO 05/12/2021 (MEDICAID REPLACEMENT - HMO) Cindy Melo-De lgado [id number] Cindy Melo Dhaliwal 06/02/2019 1 [facility] PRIOR TO 05/12/2021 (MEDICAID REPLACEMENT - HMO) Cindy Melo-De lgado [id number] Cindy Melo Dhaliwal 01/21/2020 1 [facility] PRIOR TO 05/12/2021 (MEDICAID REPLACEMENT - HMO) Cindy Melo-De lgado [id number] Cindy Melo Dhaliwal 04/28/2020 1 [facility] PRIOR TO 05/12/2021 (MEDICAID REPLACEMENT - HMO) Cindy Melo-De lgado [id number] Cindy Melo Dhaliwal 05/07/2020 1 [facility] PRIOR TO 05/12/2021 (MEDICAID REPLACEMENT - HMO) Cindy Melo-De lgado [id number] Cindy Melo Dhaliwal Notes Date Note Type Note Provider Name and Address Organization Details Recorded Time 04/02/2017 text/html general exam, c/ o right knee pain ( 2years) and low back pain ( x1 month). Need physical for college entrance ( starts in June). AIDEN Farnsworth Attn: Accounting,[address] [place], [address], [facility] 08/06/2017 10:25:37 06/02/2019 text/html Pt [facility] to [facility] requesting TB screening. Pt denies nausea, vomiting, fever, chills, rash, diarrhea, constipation and dysuria. Deedee Henderson [facility] 06/04/2019 18:56:52 01/21/2020 text/html FootReported bypatient.Location:[facility] Quality:aching; throbbing; sharp; deep; frequent; worsening Severity:severe; pain level 8/10 Duration:2 months; continuous since onset Timing:acute; chronic; recurrent Alleviating Factors:nothing helps; wearing wider shoes-cant tolerate tennis shoes-wears a lot of flip flops Aggravating Factors:sitting; standing; walking; weightbearing; going from sit to stand Associated Symptoms:no weakness; no numbness; no tingling; no warmth; no ecchymosis; no catching/locking; no popping/clicking; no buckling; no grinding; no instability; no radiation down leg; no drainage; no fever; no chills; no weight loss; no change in bowel/bladder habits;swelling;rednes s Previous Surgery:none Prior Imaging:none Previous Injections:none Previous PT:none Work Related:no Working:regular 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 SIMI Clark NP Attn: Accounting,[address] [place], [address], [facility] 04/28/2020 12:33:39 04/28/2020 text/html COVID ScreeningReported bypatient.Onset/Durati on of fever:no fever Associated Symptoms:no cough; no shortness of breathCOVID-19 Symptoms March 2020Reported bypatient.COVID-19 Signs and Symptomscough resolved; fever resolved; shortness of breath resolved; chills resolved; repeated shaking with chills resolved; muscle pain resolved; headache resolved; sore throat resolved; loss of taste or smell resolved; vomiting or diarrhea resolved; fatigue resolved; anorexia resolved Contacts and Exposureclose contact with a confirmed or suspected case of COVID-19; close proximity with person with COVID-19 Associated Symptoms:no sputum production; no wheezing; no runny nose; no vomiting; no diarrhea; no body aches; no nausea; no change in mental status; no hypotension; no tachycardia SIMI Clark NP Attn: Accounting,[address] [place], [address], [facility] 04/28/2020 12:33:39 05/07/2020 text/html Annual GYNReport ed bypatient.Menstrual cycle:Normal menses Urinary symptoms:No hematuria; No incontinence Vulva:No genital lesion Vagina:Normal vaginal discharge Breast:No breast pain; No breast lump; No nipple discharge Current Contraception:Satisfie d with current contraception; Subdermal contraceptive implant; Requests testing for sexually transmitted infections Sexual complaints:No sexual complaints; No pain during intercourse; Normal libido Menopausal Symptoms:No menopausal symptoms; Normal vaginal lubrication Psychological symptoms:No depression; No anxiety; No PMDD 24 y/o Nulliparous here for well woman exam RENE Decker Attn: Accounting,[address] [place], [address], [facility] 05/07/2020 15:27:07 OBGyn Episode No OBEpisode recorded.
--- OUTSIDE RECORDS SUMMARY | 2025-01-05 10:06 | XMS_ITS | Referral Summary ---
Author Organization [address] [address] Care Team Providers Care Ham Curer Name Role Phone Alma Chance NP Primary Care Provider [phone] Encounters Date Type Department Care Team Description 01/05/2025 9:15 AM INSPECTOR CASING Office Visit [facility] at [address] [address] Gabriela Anderson NP Abdominal pain (Primary Dx); Abdominal tenderness, rebound tenderness presence not specified, unspecified location from Last 3 Months Allergies No known active allergies Medications No known medications Active Problems No known active problems Social History Tobacco Use Types Packs/Day Years Used Date Smoking Tobacco: Never Assessed Comments Unknown Sex and Gender Information Value Date Recorded Sex Assigned at Not on file Legal Sex Female 8:37 AM INSPECTOR CASING Gender Identity Not on file Sexual Orientation Not on file Last Filed Vital Signs Vital Sign Reading Time Taken Comments Blood Pressure 119/80 01/05/2025 9:01 AM INSPECTOR CASING Pulse 75 01/05/2025 9:01 AM INSPECTOR CASING Temperature 36.8 C (98.2 F) 01/05/2025 9:01 AM INSPECTOR CASING Respiratory Rate 18 01/05/2025 9:01 AM INSPECTOR CASING Oxygen Saturation 99% 01/05/2025 9:01 AM INSPECTOR CASING Inhaled Oxygen Concentration - - Weight 99.2 kg (218 lb 9.6 oz) 01/05/2025 9:01 A M INSPECTOR CASING Height 160 cm (5' 3 ) 01/05/2025 9:01 AM INSPECTOR CASING Body Mass Index 38.72 01/05/2025 9:01 AM INSPECTOR CASING Plan of Treatment Not on file Insurance [facility] Care Teams Ham Curer Relationship Specialty Start Date End Date Alma Chance NP [address] [place] [address] PCP - General Nurse Practitioner 01/05/25
--- OUTSIDE RECORDS SUMMARY | 2025-01-05 10:06 | XMS_ITS | Clinical Summary ---
Author Organization [facility] Address [address] [place] [address] Care Team Providers Care Hydraulic Dredge Operator Name Role Phone Alma Chance CNP Primary Care Provider [phone] Social History Tobacco Use Types Packs/Day Years Used Date Smoking Tobacco: Never Assessed Comments Unknown Sex and Gender Information Value Date Recorded Sex Assigned at Not on file Legal Sex Female 10:10 AM CDT Gender Identity Not on file Sexual Orientation Not on file Plan of Treatment Health Maintenance Due Date Last Done Comments Cervical Cancer Screening Pa p Smear (Age 21 to 29) Every 3 Years 1996 Cervical Cancer Screening 1996 Annual Physical 1999 Hepatitis C 2014 DTaP, Tdap and Td Vaccines ( 1 - Tdap) 2015 Hepatitis B Vaccines (1 of 3 - 19+ 3-dose series) 2015 COVID-19 Vaccine (2023-2 5 season) 2024 Influenza Adult (#1) 2024 HPV Vaccines Aged Out No longer eligi ble based on patient's age to complete this topic Meningococcal B Vaccine Aged Out No l onger eligible based on patient's age to complete this topic Meningococcal Vaccine Aged Out No sudha yazmin eligible based on patient's age to complete this topic Pneumococcal Vaccine: Pediat rics (0 to 5 Years) and At-Risk Patients (6 to 64 Years) Aged Out No longer eligible b ased on patient's age to complete this topic RSV Immunizations Under 20 Months Aged Out No longer eligible based on patient's age to complete this topic Insurance [facility] Care Teams Hydraulic Dredge Operator Relationship Specialty Start Date End Date Alma Chance CNP [address] [place] [address] PCP - General NURSE PRACTITIONER 06/05/19
--- NOTE | 2025-01-05 11:11 | ED_ITS ---
HPI - General Adult General Chief complaint: Abdominal Pain Stated complaint: abd pain Time Seen by Provider: 01/05/25 10:34 History of Present Illness HPI narrative: 29-year-old female presents to the emergency department for evaluation for epigastric abdominal pain that does radiate into her back. Patient states the pain did start last night. Patient denies any prior history of gallbladder disease. Patient denies any history of gastritis or esophagitis. Patient denies any recent heavy alcohol consumption. Patient denies daily ibuprofen use. Patient did attempt to throw up last night because of the pain and states that this made the pain worse. Related Data Allergies Allergy/AdvReac Type Severity Reaction Status Date / Time No Known Allergies Allergy Verified 05/01/23 14:59 Review of Systems 2 Review of Systems: All systems reviewed & are unremarkable except as noted in HPI and below Exam 2 Narrative: APPEARANCE: Well appearing, no pain, no distress, well-nourished. HEAD: normocephalic, atraumatic. EYES: PERRLA/EOMI, conjunctivae clear. NOSE: Normal no drainage EARS:TMS clear with good light reflex. THROAT: Pharynx clear, no exudate. NECK: Supple. No adenopathy, no masses. RESPIRATORY: Airway patent, respirations nonlabored. Clear to auscultation bilaterally, no rales, rhonchi, wheezing. CARDIOVASCULAR: Regular rate and rhythm without murmurs rubs or gallops. ABDOMINAL: Epigastric tenderness to palpation, no right upper quadrant or left upper quadrant or back tenderness MUSCULOSKELETAL: Moves all extremities. Strength/ROM intact, No edema, No calf tenderness. NEURO: Alert. Cranial nerves II through XII intact. Good gait. Good coordination SKIN: Warm, dry. Normal Color Course Vital Signs Vital signs: Vital Signs Temperature 97.8 F 01/05/25 09:33 Pulse Rate 83 01/05/25 09:33 Respiratory Rate 18 01/05/25 09:33 Blood Pressure 131/74 01/05/25 09:33 Pulse Oximetry 100 01/05/25 09:33 Temperature 97.6 F 01/05/25 12:39 Pulse Rate 76 01/05/25 12:39 Respiratory Rate 16 01/05/25 12:39 Blood Pressure 124/68 01/05/25 12:39 Pulse Oximetry 100 01/05/25 12:39 Medical Decision Making [facility] Narrative Medical decision making narrative: 29-year-old female presents to the emergency department for evaluation for epigastric abdominal pain that is worsened when lying flat. Patient reports the GI cocktail did help with her symptoms. Patient was also treated with IV Protonix and IV famotidine. Patient is afebrile but does have a white blood cell count of 18.7. No acute abnormalities on the patient's CMP with normal T bili, AST ALT alk-phos and lipase. Patient has high white blood cells and bacteria in her urine, patient will be started on antibiotics for a possible urinary tract infection. CT scan was ordered and showed no acute intra- abdominal pathology. Patient was advised to follow a esophagitis, gastritis diet and she will be started on omeprazole and she was encouraged to follow up with GI. Differential Diagnosis Differential Diagnosis: Esophagitis, gastritis, appendicitis, pancreatitis, colitis Vital Signs Vital Signs: Vital Signs Temperature 97.8 F 01/05/25 09:33 Pulse Rate 83 01/05/25 09:33 Respiratory Rate 18 01/05/25 09:33 Blood Pressure 131/74 01/05/25 09:33 Pulse Oximetry 100 01/05/25 09:33 Temperature 97.6 F 01/05/25 12:39 Pulse Rate 76 01/05/25 12:39 Respiratory Rate 16 01/05/25 12:39 Blood Pressure 124/68 01/05/25 12:39 Pulse Oximetry 100 01/05/25 12:39 Lab Data Lab results reviewed: Yes I reviewed the patient's lab results. 01/05/25 11:15 01/05/25 11:15 Labs: Lab Results 01/05/25 01/05/25 Range/Units 11:15 11:17 WBC 18.7 H (4.5-10.0) K/mm3 RBC 4.75 (4.2-5.4) M/mm3 Hgb 13.3 (12.0-15.0) g/dL Hct 39.9 (37.0-47.0) % MCV 84.0 (80-100) fl MCH 28.0 (26-34) pg MCHC 33.3 (32-36) g/dl RDW 12.6 (11.5-14.5) % Plt Count 315 (150-375) k/mm3 MPV 9.4 (7.4-10.4) fl Immature Gran % (Auto) 0.4 (0-0.5) % Neut % (Auto) 80.1 H (45.5-73.1) % Lymph % (Auto) 13.3 L (18.3-44.2) % [place] % (Auto) 5.5 (2.6-8.5) % Eos % (Auto) 0.4 (0-4.4) % Baso % (Auto) 0.3 (0.2-1.2) % Lymph # (Auto) 2.49 (0.9-3.2) K/mm3 [place] # (Auto) 1.0 H (0.1-0.6) K/mm3 Eos # (Auto) 0.1 (0-0.3) K/mm3 Baso # (Auto) 0.1 (0.0-0.1) K/mm3 Abs Immat Gran (auto) 0.08 H (0.00-0.031) K/mm3 Absolute Neuts (auto) 14.9 H (1.3-6.7) K/mm3 Absolute Nucleated RBC 0.000 (0.0-0.012) K/mm3 Nucleated RBC % 0.0 (0.0-0.2) % Sodium 138 (137-145) mmol/L Potassium 4.1 (3.4-5.0) mmol/L Chloride 104 (98-107) mmol/L Carbon Dioxide 23 (22-30) mmol/L Anion Gap 11 (4-12) mmol/L BUN 11 (7-17) mg/dL Creatinine 0.53 L (0.7-1.0) mg/dL Estim Creat Clear Calc 149 ml/min Estimated GFR > 60 (59 - ) Glucose 88 (65-110) mg/dL Calcium 9.2 (8.4-10.2) mg/dL Total Bilirubin 0.7 (0.2-1.3) mg/dL AST 25 (14-36) U/L ALT 17 (6-35) U/L Alkaline Phosphatase 50 (38-126) U/L Total Protein 8.0 (6.3-8.2) g/dL Albumin 4.2 (3.5-5.1) g/dL Lipase 50 (23-300) U/L Urine Color Yellow (Yellow) Urine Appearance Clear (Clear) Urine pH 6.0 (5.0-9.0) Ur Specific [place] 1.026 (1.001-1.035) Urine Protein Negative (Negative) mg/dL Urine Glucose (UA) Negative (Negative) mg/dL Urine Ketones Negative (Negative) mg/dL Ur Blood (Man) Trace (Negative) Urine Nitrate Negative (Negative) Urine Bilirubin Negative (Negative) Urine Urobilinogen 0.2 (<2.0) mg/dL Leukocyte Esterase Rfl Trace H (Negative) GIOVANY/UL Urine RBC 3-5 H (0-2) /hpf Urine WBC 11-20 H (0-3) /hpf Ur Squamous Epith Cells Few (Few) /hpf Urine Bacteria 1+ H /hpf Urine Casts 0-2 POC Urine HCG, Qual Negative (Negative) Imaging Data Radiologist's impression: Impressions Abdomen/Pelvis CT 01/05/25 12:04 Impression: Trace free fluid in the pelvis, otherwise unremarkable exam. Discharge Plan Discharge Clinical Impression: Esophagitis, Urinary tract infection Patient Disposition: Home, Self-Care Condition: Stable Instructions: Antibiotic Form, Urinary Tract Infection in Women (DC), Diet for Stomach Ulcers and Gastritis (ED), Abdominal Pain (ED) Additional Instructions: Avoid alcohol and avoid NSAIDs, follow a bland diet. Omeprazole as directed for the next 14 days. Maalox as needed for intermittent epigastric pain. Have close follow-up with GI for further outpatient evaluation. Antibiotics as directed and until completed for the suspected urinary tract infection. Patient Language: Romansh Prescriptions: New omeprazole 20 mg capsule,delayed release(DR/EC) 20 mg PO DAILY 14 Days Qty: 14 0RF cephalexin 500 mg capsule 500 mg PO Q8H 7 Days Qty: 21 0RF Follow-up/Referrals: Meron,JENNIFFER Marquez [Primary Care Provider] - Kamlesh Ma MD [Physician] -
[2025-01-05 11:21] LABS: BEDSIDEPREGUCG Negative (Negative)
[2025-01-05 11:28] LABS: Basophils Absolute Auto 0.1 K/mm3 (0.0-0.1); Basophils Percent Auto 0.3 % (0.2-1.2); Eosinophils Absolute Auto 0.1 K/mm3 (0-0.3); Eosinophils Percent Auto 0.4 % (0-4.4); Hematocrit 39.9 % (37.0-47.0); Hemoglobin 13.3 g/dL (12.0-15.0); Immature Granulocyte Absolute 0.08 K/mm3 (0.00-0.031); Immature Granulocyte Percent A 0.4 % (0-0.5); Lymphocytes Absolute Auto 2.49 K/mm3 (0.9-3.2); Lymphocytes Percent Auto 13.3 % (18.3-44.2); Mean Corpuscular HGB Conc 33.3 g/dl (32-36); Mean Platelet Volume 9.4 fl (7.4-10.4); Monocytes Percent Auto 5.5 % (2.6-8.5); Neutrophils Absolute Auto 14.9 K/mm3 (1.3-6.7); Neutrophils Percent Auto 80.1 % (45.5-73.1); Platelet Count Result 315 k/mm3 (150-375); Red Blood Count 4.75 M/mm3 (4.2-5.4); Red Cell Distribution Width 12.6 % (11.5-14.5); White Blood Count 18.7 K/mm3 (4.5-10.0)
[2025-01-05 11:32] LABS: Add Urine Microscopic? YES; Appearance Urine Clear (Clear); Bacteria Urine 1+ /hpf; Bilirubin Urine Negative (Negative); Blood Urine Trace (Negative); Color Urine Yellow (Yellow); Glucose Urine UA Negative (Negative); Ketones Urine Negative (Negative); Leukocyte Esterase Ur Trace LEU/UL (Negative); Nitrate Urine Negative (Negative); Non Pathogenic Casts 0-2; Protein Urine Negative (Negative); Specific Grav Ur 1.026 (1.001-1.035); Squamous Epithelial Cell Urine Few /hpf (Few); Urobilinogen Urine 0.2 mg/dL (<2.0)
[2025-01-05] MEDS: BELLADONNA ALK/PHENOB ELIX 10 ML, MAG HYDROX/ALUMINUM HYD/SIMETH 30 ML, LIDOCAINE 2% VI... PO (11:32)
[2025-01-05] MEDS: FAMOTIDINE 20 MG/2 ML VIAL IV PUSH (11:34)
[2025-01-05] MEDS: PANTOPRAZOLE SODIUM IV 40 MG VIAL IV PUSH (11:34)
[2025-01-05 11:37] LABS: Alanine Aminotransferase 17 U/L (6-35); Albumin Level 4.2 g/dL (3.5-5.1); Alkaline Phosphatase 50 U/L (38-126); Anion Gap 11 mmol/L (4-12); Aspartate Amino Transferase 25 U/L (14-36); Bilirubin,Total 0.7 mg/dL (0.2-1.3); Blood Urea Nitrogen 11 mg/dL (7-17); Calcium 9.2 mg/dL (8.4-10.2); Carbon Dioxide 23 mmol/L (22-30); Chloride 104 mmol/L (98-107); Estimated CRCL calculation 149 ml/min; Estimated Glomerular Filt Rate > 60; Glucose 88 mg/dL (65-110); Lipase 50 U/L (23-300); Potassium 4.1 mmol/L (3.4-5.0); Sodium 138 mmol/L (137-145)
[2025-01-05 12:39] VITALS: BP 124/68; PULSE 76; RESP 16; TEMP 36.4; O2SAT 100
--- OUTSIDE RECORDS SUMMARY | 2025-01-05 12:55 | XMS_ITS | Data Portability ---
Author Organization [facility] [place] Address [address] [place] [address] Care Team Providers Care Credit Risk Officer Name Role Phone JOANSHARON BUCK Primary Care Provider Assessment Encounter Date Assessment Date Assessment LastModified by Organization Details LastModified Time 03/18/2021 03/18/2021 Annual gynecological exam performed. Patient will come back in a year unless there are new symptoms. Not available 03/18/2021 12:25:56 09/05/2023 09/05/2023 Annual gynecological exam performed. Patient will come back in a year unless there are new symptoms. [email or web address] Not available 09/05/2023 11:00:34 Plan of Treatment Reminders Order Date Submit Date Provider Last Modified By Organization Details Last Modified Time Details Appointments None recorded. Lab test, urine 2023 024 [email or web address] [place], [address], [place], [address], 4 12:39:49 test, urine 2020 021 [email or web address] [place], [address], [place], [address], 12:55:40 beta-HCG, quantitati ve, serum or plasma 2020 021 [facility] (Lab), [address], [place], [address], 17:12:28 Referral None recorded. Procedures None recorded. Surgeries None recorded. Imaging None recorded. Medication Orders Nexplanon 68 mg subdermal implant 2023 024 [email or web address] Not available 12:50:51 Patient TargetsNo targets recorded. Patient InstructionsNo instructions recorded. Reason for Referral None Reported. Results Created Date Observation Date Name Description Value Unit Range Abnormal Flag Note LastModifiedBy Organization Detail LastModifiedTime 03/18/20 21 03/18/2021 pregn filomena test, urine HCG negati ve Not Available [place] [address], [place], [address], 03/18/2021 12:54:58 09/05/20 23 09/05/2023 IMAGE GUIDE D PAP, REFLE X HPV IF ASCUS ONLY image guided Pap, reflex HPV ASCUS only SEE RESULT S BELOW CASE REPOR T: Cytol ogy Gynec ologi judy Repor t Case: [id number] Autho maggy gambino Provi suman: Zain Saenz Colle cted: 09/05 1515 [facility] Order ing Locat ion: [place] [facility] Recei dulce: 09/06 0855 First Scree n: Magali Lombardo Speci men: Scree lori Pap - Image d, Cervi x STATE MENT OF ADEQU ACY: Satis facto ry for evalu ation Trans forma tion zone compo nent prese nt FINAL DIAGN OSIS: Negat imchelle for Intra epith elial Lesio n or Cristina biggs (NIL) . Shift in rosendo sugge stive of bacte rial vagin osis. Elect robert luis d by Magali Lombardo on 09/10 at 8:26 PM ----- ----- ----- ----- ----- ----- ----- ----- ----- ----- ----- ----- ----- ----- ----- ----- ----- ---- COMME NT: This speci men was revie wed by a Cytot echno logis t and/o r Patho logis t (as indic ated in this repor t) after evalu ation using the Thinp rep Imagi ng Syste m. CLINI JUDY INFOR MATIO N: Menst rual Statu s: LMP (if appli cable ): Clini judy Histo ry/Pr eviou s Pap: Type of Neopl ann (if appli cable ): Signi fican t Clini judy Findi ngs: Other Histo ry: Hormo robby (if appli cable ): PAP EDUCA EDUARDA L NOTE: The Pap Test is a scree lori test with an inher ent false negat michelle rate. Liqui d-bas ed sampl ing may decre ase, but will not elimi vic, false negat michelle resul ts. A negat michelle resul t does not precl ude the prese nce and/o r devel opmen t of disea se, since the prese nce of abnor mal cells in the sampl e depen ds on the locat ion of the lesio n and sampl ing techn ique. Jada nued regul ar scree lori is the best metho d of cance r preve ntion . If repor livan cytol ogic findi ng do not corre late with physi judy and/o r histo rical findi ngs, furth er inves tigat ion is recom modesta d, as clini basim khanna nted. Not Available [facility] (Lab) [address], [place], [address], 09/10/2023 21:30:30 04/04/20 24 04/04/2024 pregn filomena test, urine HCG negati ve Not Available [place] [address], [place], [address], 04/04/2024 12:39:05 Result Notes None recorded. Procedures Surgical History Date Name Laterality Status Provider Name and Address Organization Details Recorded Time 04/04/20 24 Control Implant Replacement completed Brunilda Villanueva, [facility]- [address], [place], [address], [facility] 04/04/2024 13:00:40 04/15/20 21 Nexplanon Insert completed Ann Motta [facility] 04/15/2021 12:41:57 04/15/20 21 Control Implant Removal completed Brunilda Villanueva [facility] [address], [place], [address], [facility] 04/15/2021 16:41:38 04/15/20 21 Control Implant Insertion completed Brunilda Villanueva [facility] [address], [place], [address], [facility] 04/15/2021 16:41:43 02/15/20 20 Date of Last Pap Smear completed Aleah Garland [facility] 09/05/2023 11:01:41 Imaging Results None recorded. Procedure Notes None recorded. Medical Equipment None Reported. Allergies No known drug allergies Medications Name Sig Start Date Stop Date Status Note LastModified by Organization Details LastModified Time azithromyci n 250 mg tablet TAKE 2 TABLETS BY MOUTH ON DAY 1, AND THEN TAKE 1 TABLET BY MOUTH ONCE A DAY ON DAY 2 THROUGH DAY 5 09/05 completed Not Available Not Available Not Available amoxicillin 875 mg tablet TAKE 1 TABLET BY MOUTH EVERY 12 HOURS UNTIL GONE 09/05 completed Not Available Not Available Not Available Nexplanon 68 mg subdermal implant Inject 1 implant by subcutane ous route. 2023 active Not Available Not Available Not Avai lable Vitals Date Recorded Body height Body mass index (BMI) Body weight Systolic blood pressure Diastolic blood pressure Provider Name and Address Organization Details Last Updated DateTime 03/18/2021 162.56 cm 35.2 kg/m2 68917.44 g 120 mm[Hg] 79 mm[Hg] [facility] 12:26:41 Date Recorded Body height Body mass index (BMI) Body weight Systolic blood pressure Diastolic blood pressure Provider Name and Address Organization Details Last Updated DateTime 04/15/2021 162.56 cm 34.9 kg/m2 37897.97 g 105 mm[Hg] 68 mm[Hg] Ann Motta [facility] 1 12:40:05 Date Recorded Body height Body mass index (BMI) Body weight Systolic blood pressure Diastolic blood pressure Provider Name and Address Organization Details Last Updated DateTime 09/05/2023 162.56 cm 37.2 kg/m2 87104.54 g 114 mm[Hg] 77 mm[Hg] Aleah Dada [facility] 3 11:01:01 Date Recorded Body height Body mass index (BMI) Body weight Systolic blood pressure Diastolic blood pressure Provider Name and Address Organization Details Last Updated DateTime 04/04/2024 162.56 cm 37.1 kg/m2 94201.39 g 131 mm[Hg] 80 mm[Hg] Ann Yuval [facility] 4 12:38:22 Social History Question Answer Notes LastModified by Organizat ion Details LastModified Time Tobacco Smoking Status Never Smoker Carla grant [facility] 04/15/2021 11:52:48 Do You Have An Advance Directive? No Information not available 03/18/2021 What Is Your Level Of Alcohol Consumption? Occasional Information not available 03/18/2021 How Many Years Have You Consumed Alcohol? 4 Information not available 03/18/2021 Are You Blind Or Do You Have Difficulty Seeing? No Information not available 03/18/2021 What Is Your Level Of Caffeine Consumption? Occasional Information not available 03/18/2021 In The 14 Days Before Symptom Onset, Have You Had Close Contact With A Laboratory-confir med COVID-19 While That Case Was Ill? No Information not available 03/18/2021 In The 14 Days Before Symptom Onset, Have You Had Close Contact With A Person Who Is Under Investigation For COVID-19 While That Person Was Ill? No Information not available 03/18/2021 Have You Been To An Area Known To Be High Risk For COVID-19? No Information not available 03/18/2021 Are You Deaf Or Do You Have Serious Difficulty Hearing? No Information not available 03/18/2021 What Type Of Diet Are You Following? REGULAR Information not available 03/18/2021 What Is The Highest Grade Or Level Of School You Have Completed Or The Highest Degree You Have Received? 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 No Information not available 03/18/2021 Do You Use Protection During Sex? No Information not available 03/18/2021 Do You Use Your Seat Belt Or Car Seat Routinely? Yes Information not available 03/18/2021 Do You Have Smoke And Carbon Monoxide Detectors In Your Home? Yes Information not available 03/18/2021 How Much Tobacco Do You Smoke? No Information not available 03/18/2021 Do You Feel Stressed (tense, Restless, Nervous, Or Anxious, Or Unable To Sleep At Night)? [id number] Information not available 03/18/2021 Do You Use Any Illicit Or Recreational Drugs? No Information not available 03/18/2021 Do You Use Sunscreen Routinely? No Information not available 03/18/2021 Have You Used IV Drugs? No Information not available 03/18/2021 Sex: Unknown Functional Status Question Answer Note LastModified by Organizat ion Details LastModified Time Are you able to walk? YESWOREST Information not available 03/18/2021 What is your exercise level? Occasional Information not available 03/18/2021 Mental Status None recorded. Family History Relationship Description Onset Age of this Age Resolved Age Notes LastModified by Organization Details LastModified Time Maternal Grandmother Kidney disease Not available 2020 12:26:45 Mother Asthma Not available 05/2021 12:26:45 Brother Depressive disorder Not available 2020 12:26:45 Medical History Condition Response No Past Medical History Y Gynecological History Statement/Question Response Abnormal Pap N Flow Light Date of LMP 07/16/2023 N On BCP's at Conception? N STIs/STDs N Was last menstrual period normal Y HPV Vaccine Y Duration of Flow (days) 4 11 Current Control Method Implant Date of control 10/18/2017 Are cycles usually normal N Sexually Active? Y Implant Menses Monthly N Age of first menstrual cycle 12 Date of Last Pap Smear 02/15/2020 Sexual Problems? N LMP Approximate Desired Control Method Implant N Obstetrics History GPAL:G 0 P 0 0 0 0 Type Value Living 0 Total 0 Past Encounters Encounter ID Performer Location Encounter Start Date Encounter Closed Date Diagnosis/Indication Diagnosis SNOMED-CT Code Diagnosis ICD10 Code Diagnosis Note [id number] Brunilda Villanueva , [facility] [address] [address] 03/18/2021 12:10:25 03/18/2021 13:27:14 Gynecologic examination 48839086 Z01.419 Take Calcium with Vitamin D 1200mg daily if not receiving in daily diet. It is strongly advised to have an annual flu shot and up can obtain at most pharmacies . If you have not had a TDap shot in the last 10 years you should obtain one as well. Discussed with patient & provided with informatio n regarding Gardisil vaccine to prevent the 4 strains for HPV that cause cervical cancer if under age 26. Encourage safe sexual practices, to use condoms and limit partners if not already in a monogamous relationsh ip. Do monthly self breast exams. Have mammogram yearly or every other year depending on family history. BRCA testing is now available for patients with strong genetic history of female cancer. If interested contact the office. Engage in daily exercise of low impact aerobic exercise 45-60 minutes 4-5 times weekly. Avoid tobacco and illicit drugs as well as using moderation with alcohol intake less than 1-2 8 oz beverages daily. This lifestyle behavior pattern will lead to less health conditions and longer life span. If BMI greater than 25 weight watchers or dietary consult advised. Patient received above instructio ns, and questions have been answered. If you have any questions please call or respond to this email. Patient was made aware of the patient portal and may obtain a paper copy of today's plan if desired. Pap due 2022 unless otherwise indicated per asccp. NO issues or concerns. Decline std screening [facility] ion care management 184007995 Z30.9 Nexplanon . Periods have returned but very unpredicta ble. She is SA but not weekly. We have agreed to do UPT today, abstain, then return in 2wks for HCG;and nexplanon removal/re insertion as long as blood HCG is neg can proceed. [id number] Brunilda Villanueva [facility] [address] [address] 04/15/2021 11:51:10 04/17/2021 22:44:50 Removal of subcutaneous contraceptive 259733373 Z30.46 Removal site was cleansed with betadine and 3cc of lidocaine used for anesthesia . Device was removed in normal fashion without difficulty . Steri stips and pressure bandage placed. Insertion of subcutaneous contraceptive 145564924 Z30.9 Patient is here currently on her menses. She was given all the r/b/a of placement of the Nexplanon device and has signed the consent. She is fully aware of all possible side effects of the device and has decided to move forward with placement. Insertion site was cleansed with betadine and 3cc lidocaine used for anesthesia . Device was placed in the left arm per usual fashion w/o complicati on and patient instructed to f/u in one month or earlier if there are any si/sx of infection or hypersensi tivity at the insertion site F/U if issues. [id number] Brunilda Villanueva [facility] [address],[place] [address] 04/04/2024 12:30:35 04/04/2024 13:24:10 Insertion of subcutaneous contraceptive 539394897 Z30.9 Patient is here currently on her menses. She was given all the r/b/a of placement of the Nexplanon device and has signed the consent. She is fully aware of all possible side effects of the device and has decided to move forward with placement. Insertion site was cleansed with betadine and 3cc lidocaine used for anesthesia . Device was placed in the left arm per usual fashion w/o complicati on and patient instructed to f/u in 3 month or earlier if there are any si/sx of infection or hypersensi tivity at the insertion site Removal of subcutaneous contraceptive 445228665 Z30.46 Removal site was cleansed with betadine and 3cc of lidocaine used for anesthesia . Device was removed in normal fashion without difficulty . Steri stips and pressure bandage placed. [id number] Brunilda Villanueva [facility] [address] [address] 09/05/2023 10:54:45 09/05/2023 11:47:42 Gynecologic examination 27365511 Z01.419 Take Calcium with Vitamin D 1200mg daily if not receiving in daily diet. It is strongly advised to have an annual flu shot and up can obtain at most pharmacies . If you have not had a TDap shot in the last 10 years you should obtain one as well. Discussed with patient & provided with informatio n regarding Gardisil vaccine to prevent the 4 strains for HPV that cause cervical cancer if under age 26. Encourage safe sexual practices, to use condoms and limit partners if not already in a monogamous relationsh ip. Do monthly self breast exams. Have mammogram yearly or every other year depending on family history. BRCA testing is now available for patients with strong genetic history of female cancer. If interested contact the office. Engage in daily exercise of low impact aerobic exercise 45-60 minutes 4-5 times weekly. Avoid tobacco and illicit drugs as well as using moderation with alcohol intake less than 1-2 8 oz beverages daily. This lifestyle behavior pattern will lead to less health conditions and longer life span. If BMI greater than 25 weight watchers or dietary consult advised. Patient received above instructio ns, and questions have been answered. If you have any questions please call or respond to this email. Patient was made aware of the patient portal and may obtain a paper copy of today's plan if desired. Pap sentSTD Screen declinedGe netic Screen discussedC olon Screen naDexa Screen naRoutine Labs UTD PCP Health Concerns Section Related Observation LastModified by Organization Detai ls LastModified Time None Recorded Concern Status LastModified by Organization Details LastModified Time None Recorded Advance Directives Directive N: Payers Encounter Date Sequence Insurance Name Policy Number Policy Lawrence Covered Member ID Lawrence Member ID Guarantor Name 03/18/2021 1 [place] [id number] Cindy hDaliwal [id number] Cindy Dhaliwal 04/15/2021 1 [place] [id number] Cindy C Melo Dhaliwal [id number] Cindy Melo - Dhaliwal 09/05/2023 1 [place] [id number] Cindy C Melo Dhaliwal [id number] Cindy Melo - Dhaliwal 04/04/2024 2 [facility] (PPO) [id number] Mike Correia [id number] Cindy Melo - Dhaliwal 04/04/2024 1 [place] [id number] Cindy C Melo Dhaliwal [id number] Cindy Melo - Dhaliwal Notes Date Note Type Note Provider Name and Address Organization Details Recorded Time 03/18/2021 text/html Annual GYNReport ed bypatient.History:n o gynecologic complaints Menstrual cycle:Irregular menses with nexplanon device Urinary symptoms:No hematuria; No incontinence Vulva:No genital lesion Vagina:Normal vaginal discharge Breast:No breast pain; No breast lump; No nipple discharge Current Contraception:Satis fied with current contraception; Monogamous relationship; Implanon (Nexplanon 2017. . wants another) Sexual complaints:No sexual complaints; No pain during intercourse; Normal libido Menopausal Symptoms:No menopausal symptoms; Normal vaginal lubrication Psychological symptoms:No depression; No anxiety; No PMDD Preventive measures:Encourage self breast examination; Encourage regular exercise; Encourage no tobacco use; Encourage regular mammograms starting age 40; Followed with Q3 year pap smear and high risk HPV typing [facility] [address], [place], [address], [facility] 03/18/2021 12:58:35 04/15/2021 text/html Here for nexplan on removal/insertion. Brunilda Villanueva YAMILKA [address], [place], [address], [facility] 04/15/2021 16:43:03 09/05/2023 text/html Annual GYNReport ed bypatient.History:n o gynecologic complaints Menstrual cycle:Normal menses Urinary symptoms:No hematuria; No incontinence Vulva:No genital lesion Vagina:Normal vaginal discharge Breast:No breast pain; No breast lump; No nipple discharge Current Contraception:Satis fied with current contraception; Subdermal contraceptive implant Sexual complaints:No sexual complaints; No pain during intercourse; Normal libido Menopausal Symptoms:No menopausal symptoms; Normal vaginal lubrication Psychological symptoms:No depression; No anxiety; No PMDD Preventive measures:Encourage self breast examination; Encourage regular exercise; Encourage no tobacco use; Encourage regular mammograms starting age 40; Followed with yearly pap smears Brunilda Villanueva [facility] [address], [place], [address], [facility] 09/05/2023 11:46:29 04/04/2024 text/html Here today for nexplanon replacement. Brunilda Villanueva [facility] [address], [place], [address], [facility] 04/04/2024 13:01:43 OBGyn Episode No OBEpisode recorded.
--- OUTSIDE RECORDS SUMMARY | 2025-01-05 12:55 | XMS_ITS | Clinical Summary ---
Author Organization [address] [address] Care Team Providers Care Sow Farm Technician Name Role Phone Alma Chance NP Primary Care Provider [phone] Allergies No known active allergies Medications No known medications Active Problems No known active problems Encounters Date Type Department Care Team Description 01/05/2025 9:15 AM SOUR BLEACHING PLEATER Office Visit [facility] at [address] [address] Gabriela Anderson NP Abdominal pain (Primary Dx); Abdominal tenderness, rebound tenderness presence not specified, unspecified location from Last 3 Months Social History Tobacco Use Types Packs/Day Years Used Date Smoking Tobacco: Never Assessed Comments Unknown Sex and Gender Information Value Date Recorded Sex Assigned at Not on file Legal Sex Female 8:37 AM SOUR BLEACHING PLEATER Gender Identity Not on file Sexual Orientation Not on file Obstetrics History Last Filed Vital Signs Vital Sign Reading Time Taken Comments Blood Pressure 119/80 01/05/2025 9:01 AM SOUR BLEACHING PLEATER Pulse 75 01/05/2025 9:01 AM SOUR BLEACHING PLEATER Temperature 36.8 C (98.2 F) 01/05/2025 9:01 AM SOUR BLEACHING PLEATER Respiratory Rate 18 01/05/2025 9:01 AM SOUR BLEACHING PLEATER Oxygen Saturation 99% 01/05/2025 9:01 AM SOUR BLEACHING PLEATER Inhaled Oxygen Concentration - - Weight 99.2 kg (218 lb 9.6 oz) 01/05/2025 9:01 A M SOUR BLEACHING PLEATER Height 160 cm (5' 3 ) 01/05/2025 9:01 AM SOUR BLEACHING PLEATER Body Mass Index 38.72 01/05/2025 9:01 AM SOUR BLEACHING PLEATER Plan of Treatment Health Maintenance Due Date Last Done Comments Cervical Cancer Screening 1996 Depression Screening 1996 Hepatitis C Screening 1996 Varicella Vaccines (2 of 2 - 2-dose childhood series) 01/04/2007 10/12/2006 Regular Well Visit/Exam 18-64 2014 Covid-19 Vaccine ( - 2023- season) 2024 11/11/2021 Influenza Vaccine (#1) 2024 08/26/2008 DTaP/Tdap/Td Vaccine (8 - Td or Tdap) 05/07/2030 05/07/2020, 2007, 08/27/2000, Additional history exists HPV Vaccines Completed 09/17/2014, 01/11, 09/28/2010, Additional history exists Hepatitis B Screening Completed 12/29/2024 , 07/28/2024, 06/27/2024, Additional history exists Pneumococcal vaccine <65 Aged Out No longer eligible based on patient's age to complete this topic Insurance [facility] [place] Care Teams Sow Farm Technician Relationship Specialty Start Date End Date Alma Chance NP [facility] [place] [address] PCP - General Nurse Practitioner 01/05/25
--- OUTSIDE RECORDS SUMMARY | 2025-01-05 12:55 | XMS_ITS | Encounter Summary ---
Author Organization [facility] Healthcare Address [address] [place] [address] Care Team Providers Care Pain Coordinator Name Role Phone Alma Chance NP Primary Care Provider [phone] Reason for Visit * Reason Comments Abdominal Pain Upper abdominal pain , in the center under her rib cage, started last night, hurts to be flat on her back, and stand up straight, 6/10 pain, feels like a Dull pain, Encounter Details Date Type Department Care Team (Late st Contact Info) Description 01/05/2025 9:15 AM DIGITAL MEDIA STRATEGIST Office Visit [facility] Convenient Care at [address] [address] Gabriela Anderson NP [address] [place] [address] [address] [place] [address] Abdominal pain (Primary Dx); Abdominal tenderness, rebound tenderness presence not specified, unspecified location Social History Tobacco Use Types Packs/Day Years Used Date Smoking Tobacco: Never Assessed Comments Unknown Sex and Gender Information Value Date Recorded Sex Assigned at Not on file Legal Sex Female 8:37 AM DIGITAL MEDIA STRATEGIST Gender Identity Not on file Sexual Orientation Not on file documented as of this encounter Last Filed Vital Signs Vital Sign Reading Time Taken Comments Blood Pressure 119/80 01/05/2025 9:01 AM DIGITAL MEDIA STRATEGIST Pulse 75 01/05/2025 9:01 AM DIGITAL MEDIA STRATEGIST Temperature 36.8 C (98.2 F) 01/05/2025 9:01 AM DIGITAL MEDIA STRATEGIST Respiratory Rate 18 01/05/2025 9:01 AM DIGITAL MEDIA STRATEGIST Oxygen Saturation 99% 01/05/2025 9:01 AM DIGITAL MEDIA STRATEGIST Inhaled Oxygen Concentration - - Weight 99.2 kg (218 lb 9.6 oz) 01/05/2025 9:01 A M DIGITAL MEDIA STRATEGIST Height 160 cm (5' 3 ) 01/05/2025 9:01 AM DIGITAL MEDIA STRATEGIST Body Mass Index 38.72 01/05/2025 9:01 AM DIGITAL MEDIA STRATEGIST documented in this encounter Plan of Treatment Not on file documented as of this encounter Visit Diagnoses Diagnosis Abdominal pain- Primary Abdominal pain, unspecified site Abdominal tenderness, rebound tenderness presence not specified, unspecified location documented in this encounter Care Teams Pain Coordinator Relationship Specialty Start Date End Date Alma Chance NP [facility] [address], [place] [address] PCP - General Nurse Practitioner 01/05/25 documented as of this encounter
--- OUTSIDE RECORDS SUMMARY | 2025-01-05 12:55 | XMS_ITS | Referral Summary ---
Author Organization [address] [address] Care Team Providers Care Patrol Man Name Role Phone Alma Chance NP Primary Care Provider [phone] Encounters Date Type Department Care Team Description 01/05/2025 9:15 AM DECK LID FITTER Office Visit [facility] Medical Group Convenient Care at [address] [address] Gabriela Anderson NP Abdominal pain [...] on file Legal Sex Female 8:37 AM DECK LID FITTER Gender Identity Not on file Sexual Orientation Not on file Last Filed Vital Signs Vital Sign Reading Time Taken Comments Blood Pressure 119/80 01/05/2025 9:01 AM DECK LID FITTER Pulse 75 01/05/2025 9:01 AM DECK LID FITTER Temperature 36.8 C (98.2 F) 01/05/2025 9:01 AM DECK LID FITTER Respiratory Rate 18 01/05/2025 9:01 AM DECK LID FITTER Oxygen Saturation 99% 01/05/2025 9:01 AM DECK LID FITTER Inhaled Oxygen Concentration - - Weight 99.2 kg (218 lb 9.6 oz) 01/05/2025 9:01 A M DECK LID FITTER Height 160 cm (5' 3 ) 01/05/2025 9:01 AM DECK LID FITTER Body Mass Index 38.72 01/05/2025 9:01 AM DECK LID FITTER Plan of Treatment Not on file Insurance [facility] HMO [facility] [place] Care Teams Patrol Man Relationship Specialty Start Date End Date Alma Chance NP [address] [place] [address] PCP - General Nurse Practitioner 01/05/25
--- OUTSIDE RECORDS SUMMARY | 2025-01-05 12:55 | XMS_ITS | Clinical Summary ---
Author Organization [facility] Address [address] [place] [address] Care Team Providers Care Senior Capital Markets Specialist Name Role Phone Alma Chance CNP Primary Care Provider [phone] Social History Tobacco Use Types Packs/Day Years [...] patient's age to complete this topic Insurance [facility] Care Teams Senior Capital Markets Specialist Relationship Specialty Start Date End Date Alma Chance CNP [address] [place] [address] PCP - General NURSE PRACTITIONER 06/05/19
== END 2025-01-05 12:41 | disposition home or self-care (01) ==
PROVIDERS: Emergency Provider Emergency Medicine; PCP Registered Nurse
DX: K20.90 Esophagitis, unspecified without bleeding (principal); N39.0 Urinary tract infection, site not specified
CPT/HCPCS: 36415; 74177; 80053; 81001; 81025; 83690; 85025; 87086; 96374; 96375; 99284; A9270; J2470; Q9967

== ENCOUNTER 2025-03-06 10:05 | Outpatient (CLI) | payer BC, SELFPAY ==
--- OUTSIDE RECORDS SUMMARY | 2025-03-06 10:26 | XMS_ITS | Clinical Summary ---
Author Organization [facility] Address [address] [place] [address] Care Team Providers Care Muck Operator Name Role Phone Alma Chance CNP Primary Care Provider [phone] Social History Tobacco Use Types Packs/Day Years [...] 2015 COVID-19 Vaccine (2023-2 5 season) 2024 HPV Vaccines Aged Out No longer eligi ble based on patient's age to complete this topic Meningococcal B Vaccine Aged Out No l onger eligible based on patient's age to complete this topic Meningococcal Vaccine Aged Out No sudha yazmin eligible based on patient's age to complete this topic Pneumococcal Vaccine: Pediat rics (0 to 5 Years) and At-Risk Patients (6 to 49 Years) Aged Out No longer eligible b ased on patient's age to complete this topic RSV Immunizations Under 20 Months Aged Out No longer eligible based on patient's age to complete this topic Insurance [facility] Care Teams Muck Operator Relationship Specialty Start Date End Date Alma Chance CNP [address] [place] [address] PCP - General NURSE PRACTITIONER 06/05/19
--- OUTSIDE RECORDS SUMMARY | 2025-03-06 10:26 | XMS_ITS | Clinical Summary ---
Author Organization [address] [address] Care Team Providers Care Retail Merchandising Specialist Name Role Phone Alma Chance NP Primary Care Provider [phone] Allergies No known active allergies Medications No known medications Active Problems No known active problems Encounters Date Type Department Care Team Description 01/05/2025 9:15 AM MOTHER TESTER Office Visit [facility] Medical Group Convenient Care at [address] [address] Gabriela Anderson NP Abdominal pain (Primary Dx); Abdominal tenderness, rebound tenderness presence not specified, unspecified location from Last 3 Months Social History Tobacco Use Types Packs/Day Years Used Date Smoking Tobacco: Never Assessed Comments Unknown Sex and Gender Information Value Date Recorded Sex Assigned at Not on file Legal Sex Female 8:37 AM MOTHER TESTER Gender Identity Not on file Sexual Orientation Not on file Obstetrics History Last Filed Vital Signs Vital Sign Reading Time Taken Comments Blood Pressure 119/80 01/05/2025 9:01 AM MOTHER TESTER Pulse 75 01/05/2025 9:01 AM MOTHER TESTER Temperature 36.8 C (98.2 F) 01/05/2025 9:01 AM MOTHER TESTER Respiratory Rate 18 01/05/2025 9:01 AM MOTHER TESTER Oxygen Saturation 99% 01/05/2025 9:01 AM MOTHER TESTER Inhaled Oxygen Concentration - - Weight 99.2 kg (218 lb 9.6 oz) 01/05/2025 9:01 A M MOTHER TESTER Height 160 cm (5' 3 ) 01/05/2025 9:01 AM MOTHER TESTER Body Mass Index 38.72 01/05/2025 9:01 AM MOTHER TESTER Plan of Treatment Health Maintenance Due Date Last Done Comments Cervical Cancer Screening 1996 Depression Screening 1996 Hepatitis C Screening 1996 Varicella Vaccines (2 of 2 - 2-dose childhood series) 01/04/2007 10/12/2006 Regular Well Visit/Exam 18-64 2014 Covid-19 Vaccine ( season) 2024 11/11/2021 Influenza Vaccine (#1) 2024 08/26/2008 DTaP/Tdap/Td Vaccine (8 - Td or Tdap) 05/07/2030 05/07/2020, 2007, 08/27/2000, Additional history exists HPV Vaccines Completed 09/17/2014, 01/11, 09/28/2010, Additional history exists Hepatitis B Screening Completed 12/29/2024 , 07/28/2024, 06/27/2024, Additional history exists Pneumococcal vaccine <65 Aged Out No longer eligible based on patient's age to complete this topic Insurance [facility] PPO [place] Care Teams Retail Merchandising Specialist Relationship Specialty Start Date End Date Alma Chance NP [facility], [place] [address] PCP - General Nurse Practitioner 01/05/25
--- OUTSIDE RECORDS SUMMARY | 2025-03-06 10:26 | XMS_ITS | Referral Summary ---
Author Organization [address] [address] Care Team Providers Care Rehab Liaison Name Role Phone Alma Chance NP Primary Care Provider [phone] Encounters Date Type Department Care Team Description 01/05/2025 9:15 AM METAL TREATER Office Visit [facility] Medical Group Convenient Care at [address] [address] Gabriela Anderson NP Abdominal pain [...] on file Legal Sex Female 8:37 AM METAL TREATER Gender Identity Not on file Sexual Orientation Not on file Last Filed Vital Signs Vital Sign Reading Time Taken Comments Blood Pressure 119/80 01/05/2025 9:01 AM METAL TREATER Pulse 75 01/05/2025 9:01 AM METAL TREATER Temperature 36.8 C (98.2 F) 01/05/2025 9:01 AM METAL TREATER Respiratory Rate 18 01/05/2025 9:01 AM METAL TREATER Oxygen Saturation 99% 01/05/2025 9:01 AM METAL TREATER Inhaled Oxygen Concentration - - Weight 99.2 kg (218 lb 9.6 oz) 01/05/2025 9:01 A M METAL TREATER Height 160 cm (5' 3 ) 01/05/2025 9:01 AM METAL TREATER Body Mass Index 38.72 01/05/2025 9:01 AM METAL TREATER Plan of Treatment Not on file Insurance [facility] Care Teams Rehab Liaison Relationship Specialty Start Date End Date Alma Chance NP [address] [place] [address] PCP - General Nurse Practitioner 01/05/25
[2025-03-06 10:39] LABS: Hematocrit 39.1 % (37.0-47.0); Hemoglobin 13.2 g/dL (12.0-15.0); Mean Corpuscular HGB Conc 33.8 g/dl (32-36); Mean Corpuscular Hemoglobin 28.1 pg (26-34); Mean Corpuscular Volume 83.4 fl (80-100); Mean Platelet Volume 8.9 fl (7.4-10.4); Platelet Count Result 281 k/mm3 (150-375); Red Blood Count 4.69 M/mm3 (4.2-5.4); Red Cell Distribution Width 12.6 % (11.5-14.5); White Blood Count 7.2 K/mm3 (4.5-10.0)
[2025-03-10 14:49] LABS: H pylori, Urea Breath DETECTED (NOT DETECTED)
== END 2025-03-06 10:06 | disposition home or self-care (01) ==
LOC: ANHLAB 10:07
PROVIDERS: PCP Registered Nurse; Visit Provider Nurse Practitioner
DX: R10.13 Epigastric pain (principal)
CPT/HCPCS: 36415; 82784; 83013; 83516; 84443; 85027

== ENCOUNTER 2025-03-26 07:29 | Outpatient (CLI) | payer BC, SELFPAY ==
--- NOTE | ~2025-03-26 | US_ITS ---
Limited Abdominal Sonogram: Real-time sonographic imaging of the right upper quadrant was performed. Clinical History: Epigastric pain Findings: The liver appears normal with no evidence of mass lesion or bile duct dilatation. Main por louisa vein demonstrates normal direction of flow. The gallbladder is well distended, and appears normal with no evidence of gallstone or wall thickening. The common bile duct measures 3 mm. The visualize d pancreas, aorta, and IVC are unremarkable. Impression: No significant abnormality seen. Reviewed, dictated and finalized at location . Impression: No significant abnormality seen.
--- OUTSIDE RECORDS SUMMARY | 2025-03-26 07:38 | XMS_ITS | Clinical Summary ---
Author Organization [address] [address] Care Team Providers Care Rail Car Loader Name Role Phone Alma Chance NP Primary Care Provider [phone] Allergies No known active allergies Medications No known medications Active Problems No known active problems Encounters Date Type Department Care Team Description 01/05/2025 9:15 AM SOFTWARE PROJECT MANAGER Office Visit [facility] Medical Group Convenient Care at [address] [address] Gabriela Anderson NP Abdominal pain (Primary Dx); Abdominal tenderness, rebound tenderness presence not specified, unspecified location from Last 3 Months Social History Tobacco Use Types Packs/Day Years Used Date Smoking Tobacco: Never Assessed Comments Unknown Sex and Gender Information Value Date Recorded Sex Assigned at Not on file Legal Sex Female 8:37 AM SOFTWARE PROJECT MANAGER Gender Identity Not on file Sexual Orientation Not on file Obstetrics History Last Filed Vital Signs Vital Sign Reading Time Taken Comments Blood Pressure 119/80 01/05/2025 9:01 AM SOFTWARE PROJECT MANAGER Pulse 75 01/05/2025 9:01 AM SOFTWARE PROJECT MANAGER Temperature 36.8 C (98.2 F) 01/05/2025 9:01 AM SOFTWARE PROJECT MANAGER Respiratory Rate 18 01/05/2025 9:01 AM SOFTWARE PROJECT MANAGER Oxygen Saturation 99% 01/05/2025 9:01 AM SOFTWARE PROJECT MANAGER Inhaled Oxygen Concentration - - Weight 99.2 kg (218 lb 9.6 oz) 01/05/2025 9:01 A M SOFTWARE PROJECT MANAGER Height 160 cm (5' 3 ) 01/05/2025 9:01 AM SOFTWARE PROJECT MANAGER Body Mass Index 38.72 01/05/2025 9:01 AM SOFTWARE PROJECT MANAGER Plan of Treatment Health Maintenance Due Date [...] patient's age to complete this topic Insurance [facility] PPO [place] Care Teams Rail Car Loader Relationship Specialty Start Date End Date Alma Chance NP [facility], [place] [address] PCP - General Nurse Practitioner 01/05/25
--- OUTSIDE RECORDS SUMMARY | 2025-03-26 07:38 | XMS_ITS | Data Portability ---
Author Organization [facility] Address [address] [place] [address] Care Team Providers Care Chalk Tester Name Role Phone ALMA FRANCO Primary Care Provider [phone] Assessment No assessment recorded. Plan of Treatment Reminders Order Date Submit Date Provider Last Modified By Organization Details Last Modified Time Details Appointments None recorded. 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 [place] 1230 2019 020 [facility] (Lab), [address] [place], [address], 0 12:17:36 test, urine 2019 020 [facility] In-Office Order, Internal Use Only DO Not Attach Compendium DO Not Attach Compendium, Do Not Delete/merge, [id number] 0 14:54:28 PPD (purified protein derivative ), skin test 2018 019 [email or web address] In-Office Order, Internal Use Only DO Not Attach Compendium DO Not Attach Compendium, Do Not Delete/merge, [id number] 9 11:50:06 CMP, serum or plasma 2016 017 [facility], [address] [place] [address], [address], [place], [address], 7 03:30:18 lipid panel, serum 2016 017 [facility], [address] [place] [address], [address], [place], [address], 7 03:30:13 TSH + free T4, serum 2016 017 [email or web address] [facility], [address] [place] [address], [address], [place], [address], 7 15:47:38 HbA1c (hemoglobi n A1c), blood 2016 017 [facility], [address] [place] [address], [address], [place], [address], 7 08:21:08 CBC 2016 017 [email or web address] [facility], [address] [place] [address], [address], [place], [address], 7 15:47:27 CT + NG + TV, DNA, urine/swab 2016 017 [facility], [address], [address], [place], [address], 7 23:29:32 HIV (1+2) Ab screen, serum 2016 017 [facility], [address], [address], [place], [address], 7 08:21:06 Referral tub operator referral 2019 020 [facility] Not available 0 11:00:46 Procedures None recorded. Surgeries None recorded. Imaging XR, foot, 3 or more view 2019 020 [facility] Not available 0 02:49:53 Medication Orders Metrogel Vaginal 0.75 % (37.5 mg/5 gram) 2019 020 INTERFACE [facility], [address] [place], [address], 0 15:13:47 naproxen 500 mg tablet [address] [facility], [address] [place], [address], 0 14:42:00 Tubersol 5 tub. unit/0.1 mL intraderma l injection solution [address] [facility], [address] [place], [address], 0 14:00:39 Tubersol 5 tub. unit/0.1 mL intraderma l injection solution 2016 017 [facility] 2 Not available 0 14:00:39 Patient TargetsNo targets recorded. Patient Instructions Encounter Date Encounter Id Patient Instructions Last Modified By Organization Details Last Modified Time 04/02/2017 [id number] When You Want to Lose Weight: Care Instructions Not available 04/02/2017 15:31:10 back pain: care instructions Not available 04/02/2017 15:31:10 learning about tuberculosis (TB) Not available 04/02/2017 15:31:10 HIV testing recommendation condoms prn contraceptive options new guidelines--pap with Hpv in 3-5 years--pelvic exam every year Mammogram starting at 40 Check B/P once yearly [email or web address] Not available 04/02/2017 15:19:54 06/02/2019 [id number] learning about tuberculosis (TB) [email or web address] Not available 06/02/2019 17:33:38 01/21/2020 [id number] juanetes: instrucciones de cuidado - [bunions: care [...] Bexsero yarauz Not available 01/21/2020 14:40:58 04/28/2020 [id number] Reviewed the following recommendations: -Stay home and [...] started. [email or web address] Not available 04/28/2020 12:32:48 05/07/2020 [id number] tetanus and diphtheria booster: care instructions [email or web address] Not available 05/07/2020 15:14:11 SBE teaching/handout Calcium in diet plus vitamin D daily exercise monitor diet see dentist every 6 months see opthalmologist every 1-2 years HIV testing recommendation condoms prn contraceptive options-pt has nexplanon new guidelines--pap with Hpv in 3-5 years--pelvic exam every year Mammogram yearly after age 40 Check B/P once yearly kaylene Not available 05/07/2020 14:59:37 Reason for Referral Comprehensive Advisor Referral for Reyes ux valgus AND bunion [...] DO Not Attach Compendium, Do Not Delete/merge, [id number] 06/04/2019 18:55:46 04/02/20 17 04/02/2017 CBC WBC 7.5 K/uL 3.4-10 .8 Not Available [facility] (Lab) [address] [place], [address], 04/02/2017 19:47:16 04/02/20 17 04/02/2017 CBC red blood count 4.6 M/uL 4.2-5. 4 Not Available [facility] (Lab) [address] [place], [address], 04/02/2017 19:47:16 04/02/20 17 04/02/2017 CBC hemoglobin 12.6 g/dL 11.5-1 5.5 Not Available [facility] (Lab) [address] [place], [address], 04/02/2017 19:47:16 04/02/20 17 04/02/2017 CBC hematocrit 37.7 % 36.0-4 8.0 Not Available [facility] ([facility]) [address] [place], [address], 04/02/2017 19:47:16 04/02/20 17 04/02/2017 CBC MCV 81 fL 80-95 Not Available [facility] (Lab) [address] [place], [address], 04/02/2017 19:47:16 04/02/20 17 04/02/2017 CBC MCH 27 pg 27-32 Not Available [facility] (Lab) [address] [place], [address], 04/02/2017 19:47:16 04/02/20 17 04/02/2017 CBC MCHC 33 g/dL 32-36 Not Available [facility] (Lab) [address] [place], [address], 04/02/2017 19:47:16 04/02/20 17 04/02/2017 CBC platelets 331 K/uL 155-37 9 Not Available [facility] (Lab) [address] [place], [address], 04/02/2017 19:47:16 04/02/20 17 04/02/2017 CBC RDW 13.9 % 11.5-[address] [facility] (Lab) [address] [place], [address], 04/02/2017 19:47:16 04/02/20 17 04/02/2017 CBC MPV 10.2 fL 8.9-12 .7 Not Available [facility] (Lab) [address] [place], [address], 04/02/2017 19:47:16 04/02/20 17 04/02/2017 CBC neutrophils absolute 4.3 K/uL 1.4-7. [address] [facility] (Lab) [address] [place], [address], 04/02/2017 19:47:16 04/02/20 17 04/02/2017 CBC lymphs (absolute) 2.5 K/uL 0.7-3. 1 Not Available [facility] ([facility]) [address] [place], [address], 04/02/2017 19:47:16 04/02/20 17 04/02/2017 CBC monocytes (absolute) 0.6 K/uL 0.1-0. 9 Not Available [facility] (Lab) [address] [place], [address], 04/02/2017 19:47:16 04/02/20 17 04/02/2017 CBC eos (absolute) 0.1 K/uL 0.0-0. 4 Not Available [facility] (Lab) [address] [place], [address], 04/02/2017 19:47:16 04/02/20 17 04/02/2017 CBC baso (absolute) 0.0 K/uL 0.1-0. 3 low Not Available [facility] (Lab) [address] [place], [address], 04/02/2017 19:47:16 04/02/2004/02/2017 CBC neut % 57.4 % 40.0-7 4.0 Not Available [facility] (Lab) [address] [place], [address], 04/02/2017 19:47:16 04/02/20 17 04/02/2017 CBC lymphs % 33.4 % 14.0-4 6.0 Not Available [facility] (Lab) [address] [place], [address], 04/02/2017 19:47:16 04/02/20 17 04/02/2017 CBC mono % 7.5 % 4.0-12 .0 Not Available [facility] (Lab) [address] [place], [address], 04/02/2017 19:47:16 04/02/2004/02/2017 CBC eos % 1 % <=5 Not Available [facility] (Lab) [address] [place], [address], 04/02/2017 19:47:16 04/02/20 17 04/02/2017 CBC baso % 0.4 % 0.1-1. 1 Not Available [facility] (Lab) [address] [place], [address], 04/02/2017 19:47:16 04/02/20 17 04/02/2017 lipid panel w/ direc t LDL, serum cholestrol 136.0 mg/dL 140.0- 200.0 low Not Available [facility] (Lab) [address] [facility], [place], [address], 04/02/2017 21:22:37 04/02/20 17 04/02/2017 lipid panel w/ direc t LDL, serum triglyceride s 127 mg/mL 150-19 9 low Not Available [facility] (Lab) [address] [place], [address], 04/02/2017 21:22:37 04/02/20 17 04/02/2017 lipid panel w/ direc t LDL, serum HDL cholesterol 52.0 mg/dL 40.0-1 00.0 Not Available [facility] (Lab) [address] [place], [address], 04/02/2017 21:22:37 04/02/20 17 04/02/2017 lipid panel w/ dire t LDL, serum LDL direct 71 mg/dL <=100 Not Available [facility] (Lab) [address] [place], [address], 04/02/2017 21:22:37 04/02/20 17 04/02/2017 lipid panel w/ direc t LDL, serum cholhdl 2.60 mg/dL 0.00-4 .98 Not Available [facility] (Lab) [address] [place], [address], 04/02/2017 21:22:37 04/02/20 17 04/02/2017 CMP, serum or plasm a glucose, serum 81 mg/dL 65-99 Not Available [facility] ([facility]) [address] [place], [address], 04/02/2017 21:22:57 04/02/20 17 04/02/2017 CMP, serum or plasm a BUN 8 mg/dL 8-26 Not Available [facility] ([facility]) [address] [place], [address], 04/02/2017 21:22:57 04/02/20 17 04/02/2017 CMP, serum or plasm a creatinine, serum 0.60 mg/dL 0.50-1 .40 Not Available [facility] (Lab) [address], [place], [address], 04/02/2017 21:22:57 04/02/20 17 04/02/2017 CMP, serum or plasm a BUN/creatnin e ratio 13.3 Not Available [facility] (Lab) [address], [place], [address], 04/02/2017 21:22:57 04/02/2004/02/2017 CMP, serum or plasm a sodium, serum 142.0 mEq/L 136.0- 144.0 Not Available [facility] (Lab) [address] [place], [address], 04/02/2017 21:22:57 04/02/2004/02/2017 CMP, serum or plasm a potassium, serum 4.3 mmol/ L 3.5-5. 3 Not Available [facility] (Lab) [address], [place], [address], 04/02/2017 21:22:57 04/02/2004/02/2017 CMP, serum or plasm a chloride, serum 101 mmol/ l 101-11 1 Not Available [facility] (Lab) [address], [place], [address], 04/02/2017 21:22:57 04/02/2004/02/2017 CMP, serum or plasm a carbon dioxide total 20.8 mmol/ L 21.0-3 2.0 low Not Available [facility] (Lab) [address], [place], [address], 04/02/2017 21:22:57 04/02/2004/02/2017 CMP, serum or plasm a aniongp 25.0 mmol/ L Not Available [facility] (Lab) [address] [place], [address], 04/02/2017 21:22:57 04/02/20 17 04/02/2017 CMP, serum or plasm a calcium, serum 9.5 mg/dL 8.2-10 .0 Not Available [facility] (Lab) [address], [place], [address], 04/02/2017 21:22:57 04/02/20 17 04/02/2017 CMP, serum or plasm a total protein 7.5 g/dL 6.7-8. 2 Not Available [facility] (Lab) [address] [place], [address], 04/02/2017 21:22:57 04/02/20 17 04/02/2017 CMP, serum or plasm a albumin, serum 4.2 g/dL 3.5-5. 5 Not Available [facility] (Lab) [address], [place], [address], 04/02/2017 21:22:57 04/02/2004/02/2017 CMP, serum or plasm a agratio 1.3 Not Available [facility] (Lab) [address] [place], [address], 04/02/2017 21:22:57 04/02/20 17 04/02/2017 CMP, serum or plasm a bilt 0.4 mg/dL 0.2-1. 0 Not Available [facility] (Lab) [address], [place], [address], 04/02/2017 21:22:57 04/02/20 17 04/02/2017 CMP, serum or plasm a AST 18.0 U/L 10.0-4 2.0 Not Available [facility] (Lab) [address], [place], [address], 04/02/2017 21:22:57 04/02/20 17 04/02/2017 CMP, serum or plasm a ALT 13.0 U/L 10.0-6 0.0 Not Available [facility] ([facility]) [address] [place], [address], 04/02/2017 21:22:57 04/02/20 17 04/02/2017 CMP, serum or plasm a alk phos 48.0 IU/L 42.0-1 21.0 Not Available [facility] (Lab) [address] [place], [address], 04/02/2017 21:22:57 04/02/20 17 04/02/2017 CMP, serum or plasm a osmol 280.0 mOsm/ L 275.0- 301.0 Not Available [facility] (Lab) [address] [place], [address], 04/02/2017 21:22:57 04/02/20 17 04/02/2017 CMP, serum or plasm a eGFR, AM 164 m/lmi n/1.7 3_m >=60 Not Available [facility] (Lab) [address] [place], [address], 04/02/2017 21:22:57 04/02/20 17 04/02/2017 CMP, serum or plasm a eGFR, non- AM 136 mL/mi n/1.7 3/m >=60 Not Available [facility] (Lab) [address] [place], [address], 04/02/2017 21:22:57 04/02/20 17 04/03/2017 TSH + free T4, serum TSH 1.110 uIU/m L 0.450- 4.500 Not Available [facility] (Lab) [address] [place], [address], 04/03/2017 07:12:26 04/02/2004/03/2017 TSH + free T4, serum T4,free(dire ct) 1.07 NG/dL 0.82-1 .77 Not Available [facility] (Lab) [address] [place], [address], 04/03/2017 07:12:26 04/02/20 17 04/03/2017 HIV (1+2) Ab scree n, serum HIV 4TH generation Non Reacti ve non reacti ve Not Available [facility] (Lab) [address] [place], [address], 04/03/2017 08:21:06 04/02/20 17 04/03/2017 HbA1c (hemo globi n A1c), blood hemoglobin A1C 5.7 % 4.8-5. 6 high . Pre-d iabet es: 5.7 - 6.4 Diabe russell: >6.4 Glyce ene contr ol for adult s with diabe russell: <7.0 Not Available [facility] (Lab) [address] [place], [address], 04/03/2017 08:21:08 04/02/20 17 04/03/2017 CT + NG + TV, DNA, urine /swab chlamydia by DARRIN Negati ve negati ve Not Available [facility] (Lab) [address] [place], [address], 04/03/2017 23:29:32 04/02/20 17 04/03/2017 CT + NG + TV, DNA, urine /swab gonococcus by DARRIN Negati ve negati ve Not Available [facility] (Lab) [address] [facility], [place], [address], 04/03/2017 23:29:32 04/02/20 17 04/03/2017 CT + NG + TV, DNA, urine /swab trich vag by DARRIN Negati ve negati ve Not Available [facility] (Lab) [address] [place], [address], 04/03/2017 23:29:32 06/16/20 19 06/17/2019 tb (M tuber culos is), ifn-g elmo betty , blood quantiferon incubation Incuba tion perfor med. Not Available [facility] ([facility]) [address] [facility] [address], [place], [address], 06/19/2019 16:10:20 06/16/2006/17/2019 tb (M tuber culos is), ifn-g elmo betty , blood quantiferon criteria Commen t The Quant iFERO N-TB Gold Plus resul t is deter mined by alber actin g the Nil value from eithe r TB antig en (Ag) tube. The mitog en tube serve s as a contr ol for the test. Not Available [facility] ([facility]) [address] [place], [address], 06/19/2019 16:10:20 06/16/2006/19/2019 tb (M tuber culos is), ifn-g elmo betty , blood quantiferon TB1 Ag value 0.13 IU/mL Not Available [facility] ([facility]) [address] [place], [address], 06/19/2019 16:10:20 06/16/2006/19/2019 tb (M tuber culos is), ifn-g elmo betty , blood quantiferon TB2 Ag value 0.14 IU/mL Not Available [facility]) [address] [place], [address], 06/19/2019 16:10:20 06/16/2006/19/2019 tb (M tuber culos is), ifn-g elmo betty , blood quantiferon nil value 0.02 IU/mL Not Available [facility] ([facility]) [address] [place], [address], 06/19/2019 16:10:20 06/16/2006/19/2019 tb (M tuber culos is), ifn-g elmo betty , blood quantiferon mitogen value >10.00 IU/mL Not Available [facility] ([facility]) [address] [place], [address], 06/19/2019 16:10:20 06/16/2006/19/2019 tb (M tuber culos is), ifn-g elmo betty , blood quantiferon- TB gold plus Negati ve negati ve Not Available [facility] ([facility]) [address] [facility], [place], [address], 06/19/2019 16:10:20 01/21/20 20 01/21/2020 pregn filomena test, urine HCG negati ve Not Available In-Office Order Internal Use Only DO Not Attach Compendium DO Not Attach Compendium, Do Not Delete/merge, [id number] 01/21/2020 14:38:32 04/28/20 20 04/28/2020 SARS CoV 2 RNA (COVI D-19) , QL, 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 Not Available [facility] ([facility]) [address] [facility], [place], [address], 05/11/2020 11:18:14 04/28/20 20 04/28/2020 SARS CoV 2 RNA (COVI D-19) , QL, molding plasterer-P CR, respi rator y speci men covidcom2 Posit han resul ts are indic ative of the prese nce of SARS- CoV-2 RNA and do not rule out bacte rial infec tion or co-in fecti on with other virus es. Not Available [facility] (Lab) [address] [place], [address], 05/11/2020 11:18:14 04/28/20 20 04/28/2020 SARS CoV 2 RNA (COVI D-19) , QL, molding plasterer-P CR, respi rator y speci men covidcom3 Test resul ts shoul d be used along with other clini judy obser vatio ns, patie nt histo ry, epide miolo gical infor matio n and labor atory data in jose gnate g the diagn osis. Not Available [facility] (Lab) [address] [place], [address], 05/11/2020 11:18:14 04/28/20 20 04/28/2020 SARS CoV 2 RNA (COVI D-19) , QL, molding plasterer-P CR, respi rator y speci men covidcom4 [...] or revok ed soone r. Not Available [facility] (Lab) [address] [place], [address], 05/11/2020 11:18:14 04/28/20 20 04/28/2020 SARS CoV 2 RNA (COVI D-19) , QL, molding plasterer-P CR, respi rator y speci men covidcom5 Lg jasso Labor atory is certi fied under CLIA- 88 as quali fied to perfo rm high compl exity testi ng. This testi ng was perfo rmed in the [facility] [place] [address] (CLIA Licen se #[id number] 5, CAP #[id number], AU-ID #[id number]). Not Available [facility] (Lab) [address] [place], [address], 05/11/2020 11:18:14 04/28/20 20 04/28/2020 SARS CoV 2 RNA (COVI D-19) , QL, molding plasterer-P CR, respi rator y speci men covidcom6 Facts heet for healt hcare provi ders: https ://[employer] .gov/ media /3052 56/do wnloa d Facts heet for patie nts: https ://[employer] .gov/ media /8613 57/do wnloa d Not Available [facility] (Lab) [address] [place], [address], 05/11/2020 11:18:14 05/07/20 20 05/08/2020 RPR (rapi d plasm a reagi n), serum RPR Non Reacti ve non reacti ve Not Available [facility] (Lab) [address] [place], [address], 05/08/2020 06:10:00 05/07/20 20 05/08/2020 HIV (1+2) antib odies , EIA, serum , refle x HIV-1 weste rn blot (WB) HIV 4TH generation Non Reacti ve non reacti ve Not Available [facility] (Lab) [address] [place], [address], 05/08/2020 08:13:10 05/07/20 20 05/11/2020 CT + NG RNA, PCR, unspe cifie d speci men chlamydia trachomatis, DARRIN Negati ve negati ve Not Available [facility] [address] [place] [address] [address] [facility], [place], [address], 05/11/2020 08:14:26 05/07/20 20 05/11/2020 CT + NG RNA, PCR, unspe cifie d speci men neisseria gonorrhoeae, DARRIN Negati ve negati ve Not Available [facility] [address], [place], [address], 05/11/2020 08:14:26 05/07/20 20 05/12/2020 pap, IG + HPV, cervi judy diagnosis: [facility] NEGAT HAN FOR INTRA EPITH ELIAL LESIO N OR MOKO NASH . Perfo rmed at: WB Not Available [facility] [address], [place], [address], 05/12/2020 18:30:19 05/07/20 20 05/12/2020 pap, IG + HPV, cervi judy specimen adequacy: [facility] Satis facto ry for evalu ation . Endoc ervic al and/o r squam ous metap lasti c cells (endo cervi judy compo nent) are prese nt. Perfo rmed at: WB Not Available [facility] [address], [place], [address], 05/12/2020 18:30:19 05/07/20 20 05/12/2020 pap, IG + HPV, cervi judy performed by: [facility] Alejandra krishnamurthy, Cytot echno logis t (ASCP ) Perfo rmed at: WB Not Available [facility] [address], [place], [address], 05/12/2020 18:30:19 05/07/20 20 05/12/2020 pap, IG + HPV, cervi judy Pap smear, 1 slide . Perfo rmed at: WB Not Available [facility] [address], [place], [address], 05/12/2020 18:30:19 05/07/20 20 05/12/2020 pap, IG [...] rmed at: WB Not Available [facility] [address] [facility] [address], [place], [address], 05/12/2020 18:30:19 05/07/20 20 05/12/2020 pap, IG + HPV, cervi judy test methodology: IGLPAP This liqui d based ThinP rep(R ) pap test was scree sonia with the use of an image guide carissa ovalle Perfo rmed at: WB Not Available [facility] [address] [place] [address] [address], [place], [address], 05/12/2020 18:30:19 05/07/20 20 05/12/2020 pap, IG + HPV, cervi judy HPV aptima Negati ve negati ve This nucle ic acid ampli ficat ion test detec ts fourt een high- risk HPV types (16,1 8,31, 33,35 ,39,4 5,51, 52,56 ,58,5 9,66, 68) witho ut diffe renti ation . Perfo rmed at: =G Not Available [facility] [address] [facility] [address], [place], [address], 05/12/2020 18:30:19 06/05/20 19 xr chest Pa+la t [facility] [address] [place] [address] Patilianne t name: CINDY GARCIA DO Examin ation: [...] Cristobal MD, MD on 019 12:24 PM [facility] [address] [facility], [place], [address], 06/06/2019 13:02:32 06/05/20 19 06/05/2019 XR, chest , 2 view No observ ation record ed. [email or web address] [facility] [place] [address] [facility], [place], [address], 06/12/2019 14:46:47 06/13/20 19 06/05/2019 imagi ng/paco andino t No observ ation record ed. [email or web address] Not Available 2018 12:01:51 01/21/20 20 01/21/2020 XR, foot, 3 or more view No observ ation record ed. [address] [place] [address], [address], 01/22/2020 16:12:55 01/05/20 25 01/05/2025 CT, abdom en + pelvi s, w/ contr ast No observ ation record ed. [address], [place], [address], 01/08/2025 13:05:20 Result Notes None recorded. Problems Name Problem SNOMED Code Status Onset Date Resolution Date Notes Provider Name and Address Organization Details Recorded Time Body mass index 30+ - obesity 580267403 Active 2019 RENE Decker Attn: Reagan g,[address] [facility], [place], [address], [facility] 3 15:21:29 Acute sinusitis [id number] Completed 04/02/2017 Emma Delarosa RN [facility], [place] - [place] 7 14:43:24 Problem Notes None recorded. Procedures Surgical History Date Name Laterality Status Provider Name and Address Organization Details Recorded Time 05/07/2020 Date of Last Pap Smear completed RENE Decker Attn: Del, [facility], [place], [address], [facility] 05/07/2020 14:57:22 Imaging Results Imaging Date Name Status LastModified by Organchandu ation Details LastModified Time 06/05/2019 xr chest Pa+lat completed [facility] [address] [place], [address], 06/06/2019 13:02:32 06/05/2019 XR, chest, 2 view completed [email or web address] [facility] [place] [address] [facility], [place], [address], 06/12/2019 14:46:47 06/05/2019 imaging/diagn ostic result completed [id number]|2025-03-26 07:38:00|2025-03-26 07:38:00|XMS_ITS|BKG DAEMON|External Medical Summaries|[id number]|" Referral Summary Created on: March 26, 2025 Cindy Dominguez : 1995 Sex: Female Author Organization [address] Address [address] [place] [id number] Care Team Providers Care Chalk Tester Name Role Phone Alma Franco JENNIFFER Primary Care Provider [phone] Encounters Date Type Department Care Team Description 01/05/2025 9:15 AM BARTENDER HELPER Office Visit [facility] at [address] [id number] Gabriela Anderson NP Abdominal pain [...] on file Legal Sex Female 8:37 AM BARTENDER HELPER Gender Identity Not on file Sexual Orientation Not on file Last Filed Vital Signs Vital Sign Reading Time Taken Comments Blood Pressure 119/80 01/05/2025 9:01 AM BARTENDER HELPER Pulse 75 01/05/2025 9:01 AM BARTENDER HELPER Temperature 36.8 C (98.2 F) 01/05/2025 9:01 AM BARTENDER HELPER Respiratory Rate 18 01/05/2025 9:01 AM BARTENDER HELPER Oxygen Saturation 99% 01/05/2025 9:01 AM BARTENDER HELPER Inhaled Oxygen Concentration - - Weight 99.2 kg (218 lb 9.6 oz) 01/05/2025 9:01 A M BARTENDER HELPER Height 160 cm (5' 3 ) 01/05/2025 9:01 AM BARTENDER HELPER Body Mass Index 38.72 01/05/2025 9:01 AM BARTENDER HELPER Plan of Treatment Not on file Insurance [facility] CHOICE PRF PPO [place] Care Teams Chalk Tester Relationship Specialty Start Date End Date Alma Franco NP [address] [place], [place] [phone] PCP - General Nurse Practitioner 01/05/25 "
--- OUTSIDE RECORDS SUMMARY | 2025-03-26 07:39 | XMS_ITS | Clinical Summary ---
Author Organization [facility] Address [address] [place] [address] Care Team Providers Care Pharmaceutical Worker Name Role Phone Alma Chance CNP Primary Care Provider [phone] Social History Tobacco Use Types Packs/Day Years [...] patient's age to complete this topic Insurance [facility] Care Teams Pharmaceutical Worker Relationship Specialty Start Date End Date Alma Chance CNP PCP - General NURSE PRACTITIONER 06/05/19
== END 2025-03-26 07:30 | disposition home or self-care (01) ==
LOC: ANHIMG 07:34
PROVIDERS: PCP Registered Nurse; Visit Provider Nurse Practitioner
DX: R10.13 Epigastric pain (principal)
CPT/HCPCS: 76705

== ENCOUNTER 2025-05-29 09:09 | Outpatient (CLI) | payer BC, SELFPAY ==
--- OUTSIDE RECORDS SUMMARY | 2025-05-29 09:14 | XMS_ITS | Clinical Summary ---
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 Gender Identity Not on file Sexual Orientation Not on file Obstetrics History Last Filed Vital Signs Vital Sign Reading Time Taken Comments Blood Pressure 119/80 01/05/2025 9:01 AM RUG SETTER VELVET Pulse 75 01/05/2025 9:01 AM RUG SETTER VELVET Temperature 36.8 C (98.2 F) 01/05/2025 9:01 AM RUG SETTER VELVET Respiratory Rate 18 01/05/2025 9:01 AM RUG SETTER VELVET Oxygen Saturation 99% 01/05/2025 9:01 AM RUG SETTER VELVET Inhaled Oxygen Concentration - - Weight 99.2 kg (218 lb 9.6 oz) 01/05/2025 9:01 A M RUG SETTER VELVET Height 160 cm (5' 3) 01/05/2025 9:01 AM RUG SETTER VELVET Body Mass Index 38.72 01/05/2025 9:01 AM RUG SETTER VELVET Plan of Treatment Health Maintenance Due Date Last Done Comments Cervical Cancer Screening 1996 Depression Screening 1996 Hepatitis C Screening 1996 Varicella Vaccines (2 of 2 - 2-dose childhood series) 01/04/2007 10/12/2006 Regular Well Visit/Exam 18-64 2014 Covid-19 Vaccine ( season) 2024 11/11/2021 Influenza Vaccine (Season Ended) 2025 08/26/2008 DTaP/Tdap/Td Vaccine (8 - Td or Tdap) 05/07/2030 05/07/2020, 2007, 08/27/2000, Additional history exists HPV Vaccines Completed 09/17/2014, 01/11, 09/28/2010, Additional history exists Hepatitis B Screening Completed 12/29/2024 , 07/28/2024, 06/27/2024, Additional history exists Pneumococcal vaccine <65 Aged Out No longer eligible based on patient's age to complete this topic Insurance [facility] Care Teams Global Director Air And Climate Change Relationship Specialty Start Date End Date Alma Chance NP [address] [place], [place] [phone] PCP - General Nurse Practitioner 01/05/25
--- OUTSIDE RECORDS SUMMARY | 2025-05-29 09:14 | XMS_ITS | Referral Summary ---
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 Gender Identity Not on file Sexual Orientation Not on file Last Filed Vital Signs Vital Sign Reading Time Taken Comments Blood Pressure 119/80 01/05/2025 9:01 AM RIGGING SLINGER Pulse 75 01/05/2025 9:01 AM RIGGING SLINGER Temperature 36.8 C (98.2 F) 01/05/2025 9:01 AM RIGGING SLINGER Respiratory Rate 18 01/05/2025 9:01 AM RIGGING SLINGER Oxygen Saturation 99% 01/05/2025 9:01 AM RIGGING SLINGER Inhaled Oxygen Concentration - - Weight 99.2 kg (218 lb 9.6 oz) 01/05/2025 9:01 A M RIGGING SLINGER Height 160 cm (5' 3) 01/05/2025 9:01 AM RIGGING SLINGER Body Mass Index 38.72 01/05/2025 9:01 AM RIGGING SLINGER Plan of Treatment Not on file Insurance [facility] CHOICE PRF PPO [place] Care Teams Knit Goods Washer Relationship Specialty Start Date End Date Alma Chance NP [facility], [place] [address] PCP - General Nurse Practitioner 01/05/25
--- OUTSIDE RECORDS SUMMARY | 2025-05-29 09:14 | XMS_ITS | Clinical Summary ---
Author Organization [facility] Address [address] [place] [address] Care Team Providers Care Triage Clinician Name Role Phone Alma Chance CNP Primary Care Provider [phone] Social History Tobacco Use Types Packs/Day Years [...] patient's age to complete this topic Insurance [facility] Care Teams Triage Clinician Relationship Specialty Start Date End Date Alma Chance CNP PCP - General NURSE PRACTITIONER 06/05/19
--- OUTSIDE RECORDS SUMMARY | 2025-05-29 09:14 | XMS_ITS | Clinical Summary ---
Author Organization [facility] Address [address] [place] [address] Care Team Providers Care Ornamental Metalwork Designer Name Role Phone Unavailable Primary Care Provider Unavailabl e Source Comments [facility],non-owned Affiliates and Associated Physician Practices is amultiple site organization consisting of ambulatory clinics and hospital sitesin [place], [place], [place] and [place]. This disclosure is being madepursuant to the Care Everywhere program and may not contain all information available regarding this patient. Last updated 18.[facility] Allergies No known active allergies Medications * Be aware that medications may not be up to date on this document. Alwaysverify current medications with the patient. ibuprofen (MOTRIN) 400 MG tablet Take 1 Tab by mouth every 8 hours as needed for Pain. 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 Gender Identity Not on file Sexual Orientation Not on file Last Filed Vital Signs Vital Sign Reading Time Taken Comments Blood Pressure 125/82 02/25/2011 11:56 PM CDT Pulse 64 02/26/2011 4:40 AM CDT Temperature 36.6 C (97.9 F) 02/25/2011 11:56 PM CDT Respiratory Rate 20 02/26/2011 4:40 AM CDT Oxygen Saturation - - Inhaled Oxygen Concentration - - Weight 36.8 kg (81 lb 2.1 oz) 02/26/2011 12:13 A M CDT Height - - Body Mass Index - - Plan of Treatment Health Maintenance Due Date Last Done Comments HIV SCREENING 2011 HEPATITIS C SCREENING 08/11/2014 DTAP/TDAP/TD VACCINES (1 - Tdap) 2015 HEPATITIS B VACCINE (1 of 3 - 19+ 3-dose series) 2015 HPV VACCINE (1 - 3-dose SCDM series) 2023 COVID-19 VACCINE (1 - 2023-2 5 season) 2024 DEPRESSION SCREENING 11/12/2024 INFLUENZA VACCINE (#1) 2025 ZOSTER VACCINE (1 of 2) 2046 HIB VACCINE Aged Out No longer eligi ble based on patient's age to complete this topic MENINGOCOCCAL (Group B) VACC INE SHARED DECISION-MAKING Aged Out No longer eligibl e based on patient's age to complete this topic MENINGOCOCCAL GROUPS A/C/Y/W VACCINE Aged Out No longer eligible b ased on patient's age to complete this topic PNEUMOCOCCAL VACCINE Aged Out No long er eligible based on patient's age to complete this topic
--- OUTSIDE RECORDS SUMMARY | 2025-05-29 09:14 | XMS_ITS | Data Portability ---
Author Organization [facility] Address [address] [place] [place] [address] [place] [address] Care Team Providers Care Floor Care Specialist Name Role Phone JOANSHARON BUCK Primary Care [...] recorded. Lab test, urine 2023 024 [email or web address] [facility], [address], [place], [address], 4 12:39:49 test, urine 2020 021 [email or web address] [facility], [address], [place], [address], 1 12:55:40 beta-HCG, quantitati ve, serum or plasma 2020 021 [facility] (Lab), [address], [place], [address], 17:12:28 Referral None recorded. Procedures None recorded. [...] test, urine HCG negati ve Not Available [facility] [address], [place], [address], 03/18/2021 12:54:58 09/05/20 23 09/05/2023 IMAGE GUIDE D PAP, REFLE X HPV IF ASCUS ONLY image guided Pap, reflex HPV ASCUS only SEE RESULT S BELOW CASE REPOR T: Cytol ogy Gynec ologi judy Repor t Case: [id number] Autho maggy gambino Provi suman: Zain Saenz Colle cted: 09/05 1515 ATTRACTION WORKER Order ing Locat ion: [place] [facility] Recei dulce: 09/06 0855 First Scree n: Magali Lombardo Speci men: Scree lori Pap - Image d, Cervi x STATE MENT OF ADEQU ACY: Satis facto ry for evalu ation Trans forma tion zone compo nent prese nt FINAL DIAGN OSIS: Negat michelle for Intra epith elial Lesio n or Cristina biggs (NIL) . Shift in rosendo sugge stive of bacte rial vagin osis. Elect robert waller toby d by Magali Lombardo on 09/10 at [...] Thinp rep Imagi ng Syste m. CLINI JDUY INFOR MATIO N: Menst rual Statu s: [...] as clini basim khanna nted. Not Available [facility] (Lab) [address], [place], [address], 09/10/2023 21:30:30 04/04/20 24 04/04/2024 pregn filomena test, urine HCG negati ve Not Available [facility] [address], [place], [address], 04/04/2024 12:39:05 Result Notes None recorded. Procedures Surgical History Date Name Laterality Status Provider Name and Address Organization Details Recorded Time 04/04/20 Control Implant Replacement completed Brunilda Villanueva, [facility]- [address], [place], [address], [facility] 04/04/2024 13:00:40 04/15/20 21 Nexplanon Insert completed Ann Motta [facility] 04/15/2021 12:41:57 04/15/20 21 Control Implant Removal completed Brunilda Villanueva [facility] [address], [place], [address], [facility] 04/15/2021 16:41:38 04/15/20 21 Control Implant Insertion completed Brunilda Villanueva [facility] [address], [place], [address], [facility] 04/15/2021 16:41:43 02/15/20 20 Date of Last Pap Smear completed Aleah Garland [facility] 09/05/2023 11:01:41 Imaging Results None recorded. [...] Body mass index (BMI) Body weight Systolic And Diastolic Provider Name and Address Organization Details Last Updated DateTime 03/18/2021 162.56 cm 35.2 kg/m2 49888.44 g 120/79 mm[Hg] Ann [facility] 03/18/2021 12:26:41 Date Recorded Body height Body mass index (BMI) Body weight Systolic And Diastolic Provider Name and Address Organization Details Last Updated DateTime 04/04/2024 162.56 cm 37.1 kg/m2 17100.39 g 131/80 mm[Hg] Ann Yuval [facility] 04/04/2024 12:38:22 Date Recorded Body height Body mass index (BMI) Body weight Systolic And Diastolic Provider Name and Address Organization Details Last Updated DateTime 04/15/2021 162.56 cm 34.9 kg/m2 55879.97 g 105/68 mm[Hg] Ann Kalia [facility] 04/15/2021 12:40:05 Date Recorded Body height Body mass index (BMI) Body weight Systolic And Diastolic Provider Name and Address Organization Details Last Updated DateTime 09/05/2023 162.56 cm 37.2 kg/m2 75033.54 g 114/77 mm[Hg] Aleah Garland [facility] 09/05/2023 11:01:01 Social History Question Answer Notes LastModified by Organizat ion Details LastModified Time Tobacco Smoking Status Never Smoker Carla grant [facility] 04/15/2021 11:52:48 Do You Have An Advance Directive? No Information n ot available 03/18/2021 How Many Years Have You Consumed Alcohol? 4 Information not available 03/18/2021 Are You Blind Or Do You Have Difficulty Seeing? No Information n ot available 03/18/2021 What Is Your Level Of Caffeine Consumption? Occasional Information not available 03/18/2021 In The 14 Days Before Symptom Onset, Have You Had Close Contact With A Laboratory-confirm ed COVID-19 While That Case Was Ill? No Information n ot available 03/18/2021 In The 14 Days Before [...] Of Diet Are You Following? REGULAR Information n ot available 03/18/2021 What Is The Highest Grade Or Level Of School You Have Completed Or The Highest Degree You Have Received? [id number] Information not available 03/18/2021 Are There Any [...] LastModified by Organizat ion Details LastModified Time Do you use any illicit or recreational drugs? No Information not available 03/18/2021 What is your level of alcohol consumption? Occasional Information not available 03/18/2021 Are you able to walk? 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 Occasional Information not available 03/18/2021 Mental Status Question Answer Note LastModified by Organization D etails LastModified Time Do you feel stressed (tense, restless, nervous, or anxious, or unable to sleep at night)? [id number] Information not available 03/18/2021 Family History Relationship Description Onset Age of [...] SNOMED-CT Code Diagnosis ICD10 Code Diagnosis Note [id number] Brunilda Villanueva , [facility] [address] [address] 03/18/2021 12:10:25 03/18/2021 13:27:14 Gynecologic examination 49391866 Z01.419 Take Calcium with Vitamin D 1200mg [...] NO issues or concerns. Decline std screening [facility] management [id number] Z30.9 Nexplanon . Periods have returned but very unpredicta ble. She is SA but not weekly. We have agreed to do UPT today, abstain, then return in 2wks for HCG;and nexplanon removal/re insertion as long as blood HCG is neg can proceed. [id number] Brunilda Villanueva [facility] [address] [address] 04/15/2021 11:51:10 04/17/2021 22:44:50 Removal of subcutaneous contraceptive 360818941 Z30.46 Removal site was cleansed with betadine and 3cc of lidocaine used for anesthesia . Device was removed in normal fashion without difficulty . Steri stips and pressure bandage placed. Implantati on of subcutaneous contraceptive 066826089 Z30.9 Patient is here currently on her [...] at the insertion site F/U if issues. [id number] Brunilda Villanueva [facility] [address] [address] 04/04/2024 12:30:35 04/04/2024 13:24:10 Implantation of subcutaneous contraceptive [id number] Z30.9 Patient is here currently on her [...] the insertion site Removal of subcutaneous contraceptive [id number] Z30.46 Removal site was cleansed with betadine and 3cc of lidocaine used for anesthesia . Device was removed in normal fashion without difficulty . Steri stips and pressure bandage placed. [id number] Brunilda Villanueva [facility] [address] [address] 09/05/2023 10:54:45 09/05/2023 11:47:42 Gynecologic examination 21972942 Z01.419 Take Calcium with Vitamin D 1200mg [...] None Recorded Advance Directives Directive N: Payers Insurance Date Sequence Insurance Name Policy Number Policy Lawrence Covered Member ID Lawrence Member ID Guarantor Name 04/03/2024 2 [facility] [id number] Mike Correia [id number] Cindy Dhaliwal 04/07/2024 1 [place] [id number] Cindy Troy Kameron Dhaliwal [id number] Cindy Dhaliwal Notes Date Note Type Note Provider [...] and high risk HPV typing [facility] Villanueva [facility] [address], [place], [address], [facility] 03/18/2021 12:58:35 04/15/2021 text/html Here for nexplan on removal/insertion. Brunilda Villanueva [facility] [address], [place], [address], [facility] 04/15/2021 16:43:03 09/05/2023 text/html Annual [...] Followed with yearly pap smears Brunilda Villanueva [facility] [address], [place], [address], [facility] 09/05/2023 11:46:29 04/04/2024 text/html Here today for nexplanon replacement. Brunilda Villanueva [facility] [address], [place], [address], [facility] 04/04/2024 13:01:43 OBGyn Episode No OBEpisode recorded.
== END 2025-05-29 09:10 | disposition home or self-care (01) ==
LOC: ANHLAB 09:13
PROVIDERS: PCP Registered Nurse; Visit Provider Nurse Practitioner
DX: A04.8 Other specified bacterial intestinal infections (principal)
CPT/HCPCS: 83013